=== PATIENT | female | born 1965 | race Caucasian/White ===

== ENCOUNTER → 2020-08-14 10:40 | Outpatient (BNVA) | payer OTHER, SELFPAY | PROVIDERS: PCP Physician Assistant; Visit Provider Surgery Vascular Surgery | DX: I83.11 Varicose veins of right lower extremity with inflammation (principal) | CPT/HCPCS: 37765 ==

== ENCOUNTER → 2020-08-31 08:55 | Outpatient (BNVA) | payer OTHER, SELFPAY | PROVIDERS: PCP Physician Assistant; Visit Provider Surgery Vascular Surgery | DX: Z76.89 Persons encountering health services in other specified circumstances (principal) ==

== ENCOUNTER 2020-12-04 14:33 | Outpatient (REF) | payer BC, SELFPAY ==
--- NOTE | ~2020-12-04 | MM_ITS ---
EXAMINATION: MM SCREENING DIGITAL BREAST TOMOSYNTHESIS, BILATERAL CLINICAL INFORMATION: Screening. Asymptomatic. The lifetime risk of breast cancer based on the Tyrer-Cuzick Model is 9%. COMPARISON: Mammography: 11/29/2019, outside exam 01/02/2015 06/05/2012 ([facility]). TECHNIQUE: Digital breast tomosynthesis is performed in both the craniocaudal and mediolateral oblique views along with computer-aided detection (CAD). Synthesized 2D images are generated from the tomosynthesis. FINDINGS: There are scattered areas of fibroglandular density (ACR BI-RADS breast composition Category b). Breast tissue composition borders on heterogeneously dense. There is no developing density or interval mass or architectural abnormality. There are vascular calcifications again noted. The axilla and skin contours are unremarkable. Biopsy clip marker again seen retroareolar right breast. MM/MM tomosynthesis screening BI IMPRESSION: No significant changes from prior study. ASSESSMENT: BI-RADS 1: Negative RECOMMENDATION: Routine annual mammography screening. This patient's information was entered into a reminder system with a target due date for their next mammogram.
== END 2020-12-04 14:34 | disposition home or self-care (01) ==
LOC: HO.MAMMO 14:33
PROVIDERS: Visit Provider Physician Assistant
DX: Z12.31 Encounter for screening mammogram for malignant neoplasm of breast (principal)
CPT/HCPCS: 77063; 77067

== ENCOUNTER 2021-03-17 14:58 | Outpatient (REF) | payer BC, SELFPAY ==
--- NOTE | ~2021-03-17 | XR_ITS ---
EXAMINATION: XR FOOT, RIGHT CLINICAL INFORMATION: Pain COMPARISON: None TECHNIQUE: AP, lateral, and oblique views of the right foot. FINDINGS: No fracture or dislocation is seen. There is mild hallux valgus deformity and degenerative change with joint space narrowing and small osteophytes at the first MTP joint. There is overlying soft tissue swelling. There may be a small cyst or erosion the proximal phalanx of the great toe. There are degenerative changes of the midfoot at the navicular cuneiform and cuneiform metatarsal joints with osteophytes. Soft tissues are unremarkable. XR/XR foot RT 2V IMPRESSION: Hallux valgus deformity and mild arthritis soft tissue swelling at the first MTP joint. Degenerative changes in the midfoot at the navicular cuneiform and MTT joints.
== END 2021-03-17 14:59 | disposition home or self-care (01) ==
LOC: HO.XRAY 14:58
PROVIDERS: PCP Physician Assistant; Visit Provider Physician Assistant
DX: G89.29 Other chronic pain (principal); M79.671 Pain in right foot
CPT/HCPCS: 73620

== ENCOUNTER 2021-03-19 10:20 | Outpatient (REF) | payer BC, SELFPAY ==
--- NOTE | ~2021-03-19 | FL_ITS ---
EXAMINATION: FL BARIUM SWALLOW CLINICAL INFORMATION: Dysphagia. COMPARISON: None TECHNIQUE: Barium swallow examination is performed using fluoroscopic evaluation in addition to multiple fluoroscopic spot views. The patient is imaged both upright and prone and using both thick and thin sulfate along with effervescent granules. Fluoroscopy time: 2.1 minutes DAP: 11.103 Gycm2 Images: 54 FINDINGS: Following oral administration of thin, thick barium and barium-coated turkey, there is normal propagation of bolus to oral cavity through the pharynx and esophagus into stomach without any evidence of obstruction, narrowing or stricture. On oral administration of barium tablet, there is transitional hold-up seen in the cervical esophageal region and at the GE junction. However, this cleared with drinking lots of water. On placing patient prone and oral administration of thin barium, there is good distention of esophagus with no intraluminal filling defects seen. Moderate indentation of the anterior thoracic esophageal wall seen corresponding to prominent aortic knob and mildly enlarged left atrium. There is a small sliding hiatal hernia with no gastroesophageal reflux seen. FL/FL barium swallow IMPRESSION: Small sliding hiatal hernia without gastroesophageal reflux. There is no esophageal obstruction, narrowing or stricture. Mild indentation of anterior sidewall from mild ectatic thoracic aorta and prominent left atrium.
== END 2021-03-19 10:21 | disposition home or self-care (01) ==
LOC: HO.XRAY 10:20
PROVIDERS: PCP Physician Assistant; Visit Provider Physician Assistant
DX: R13.10 Dysphagia, unspecified (principal)
CPT/HCPCS: 74220

== ENCOUNTER 2021-12-15 10:05 | Outpatient (REF) | payer BC, SELFPAY ==
[2021-12-15 10:41] LABS: Hematocrit 40.8 % (37.0-47.0); Hemoglobin 13.3 g/dl (12.0-16.0); Mean Corpuscular HGB Conc 32.6 g/dl (31.0-35.0); Mean Corpuscular Hemoglobin 29.3 pg (27.0-33.0); Mean Corpuscular Volume 89.9 fL (80.0-98.0); Mean Platelet Volume 10.4 fL (9.4-12.3); Platelet Count 263 X10*3/uL (160-400); Red Blood Count 4.54 X10*6/uL (4.20-5.50); Red Cell Distribution Width 12.8 % (11.0-16.0); White Blood Count 3.9 X10*3/uL (4.8-10.8)
[2021-12-15 11:14] LABS: Alanine Aminotransferase 24 U/L (0-31); Albumin Level 4.4 g/dL (3.5-5.0); Alkaline Phosphatase 47 U/L (39-117); Anion Gap 10 (12-20); Aspartate Amino Transferase 24 U/L (5-31); Bilirubin Total 0.7 mg/dL (0.0-1.0); Blood Urea Nitrogen 7 mg/dL (9-16); Calcium 9.7 mg/dL (8.4-10.2); Carbon Dioxide 29 mmol/L (22-29); Chloride 106 mmol/L (96-108); Cholesterol 255 mg/dL; Estimated Glomerular Filt Rate > 60; Glucose Fasting 89 mg/dL (60-99); HDL Cholesterol 62 mg/dL; LDL Cholesterol Calculated 177 mg/dl; Potassium 4.9 mmol/L (3.3-5.1); Sodium 140 mmol/L (135-145); Total Protein 6.9 g/dL (6.5-8.0); Triglycerides 80 mg/dL
[2021-12-15 11:24] LABS: Estimated Average Glucose 108 mg/dL; Hemoglobin A1c % 5.4 %
[2021-12-15 11:35] LABS: TSH reflex Free T4 1.31 uIU/mL (0.32-4.0)
== END 2021-12-15 10:06 | disposition home or self-care (01) ==
LOC: HO.LAB 10:05
PROVIDERS: PCP Physician Assistant; Visit Provider Physician Assistant
DX: Z13.220 Encounter for screening for lipoid disorders (principal); Z13.29 Encounter for screening for other suspected endocrine disorder; I10 Essential (primary) hypertension
CPT/HCPCS: 36415; 80053; 80061; 83036; 84443; 85027

== ENCOUNTER 2022-11-16 15:12 | Outpatient (REF) | payer BC, SELFPAY ==
--- NOTE | ~2022-11-16 | MM_ITS ---
EXAMINATION: MM SCREENING DIGITAL BREAST TOMOSYNTHESIS, BILATERAL CLINICAL INFORMATION: Screening. Asymptomatic. The lifetime risk of breast cancer based on the Tyrer-Cuzick Model is 5.9%. COMPARISON: Mammography: December 04, 2020 and studies dating back to June 05, 2012 TECHNIQUE: Digital breast tomosynthesis is performed in both the craniocaudal and mediolateral oblique views along with computer-aided detection (CAD). Synthesized 2D images are generated from the tomosynthesis. FINDINGS: There are scattered areas of fibroglandular density (ACR BI-RADS breast composition Category b). There are no significant masses, abnormal calcifications, or other abnormalities. MM/MM tomosynthesis screening BI IMPRESSION: No significant changes from prior exam. ASSESSMENT: BI-RADS 1: Negative RECOMMENDATION: Routine annual mammography screening. This patient's information was entered into a reminder system with a target due date for their next mammogram.
== END 2022-11-16 15:13 | disposition home or self-care (01) ==
LOC: HO.MAMMO 15:12
PROVIDERS: PCP Physician Assistant; Visit Provider Physician Assistant
DX: Z12.31 Encounter for screening mammogram for malignant neoplasm of breast (principal)
CPT/HCPCS: 77063; 77067

== ENCOUNTER 2023-08-05 17:28 | Emergency (ER) | payer BC, SELFPAY ==
--- NOTE | 2023-08-05 | ECG_ITS ---
Test Reason : CHEST PAIN Blood Pressure : / mmHG Vent. Rate : 074 BPM Atrial Rate : 074 BPM P-R Int : 142 ms QRS Dur : 096 ms QT Int : 408 ms P-R-T Axes : 031 054 013 degrees QTc Int : 452 ms Normal sinus rhythm RSR' or QR pattern in V1 suggests right ventricular conduction delay Nonspecific ST abnormality Abnormal ECG When compared with ECG of 15-MAY-2014 13:32, No significant change was found Referred By: Generic ED Physician Electronically Signed By:LOU KING MD
--- NOTE | ~2023-08-05 | XR_ITS ---
EXAMINATION: XR CHEST CLINICAL INFORMATION: Chest pain COMPARISON: None available. TECHNIQUE: Frontal view of the chest was obtained. FINDINGS: No significant abnormality is noted involving the heart, lungs, mediastinum, bony thorax or soft tissues. XR/XR chest 1V IMPRESSION: Unremarkable chest examination.
[2023-08-05 17:42] VITALS: BP 154/87; PULSE 66; RESP 18; TEMP 36.6; O2SAT 100; BMI 29.1
[2023-08-05 17:56] VITALS: BP 158/81; PULSE 65; RESP 16; TEMP 36.8; O2SAT 100
[2023-08-05 18:06] LABS: MANUAL DIFF FLAG NO
[2023-08-05 18:07] LABS: Basophils Percent Auto 0.6 % (0-2); Eosinophils Absolute Auto 0.4 X10*3/uL (0.0-0.4); Eosinophils Percent Auto 5.1 % (0-4); Hemoglobin 11.9 g/dl (12.0-16.0); Imm Gran Abs Auto 0.01 X10*3/uL (0.00-0.03); Imm Gran Pct Auto 0.1 % (0.0-0.4); Lymphocytes Absolute Auto 2.8 X10*3/uL (1.2-4.9); Mean Corpuscular Hemoglobin 29.2 pg (27.0-33.0); Mean Corpuscular Volume 85.8 fL (80.0-98.0); Mean Platelet Volume 9.4 fL (9.4-12.3); Monocytes Absolute Auto 0.7 X10*3/uL (0.1-1.2); Monocytes Percent Auto 10.1 % (2-11); Neutrophils Absolute Auto 3.1 x10*3/uL (2.0-8.3); Neutrophils Percent Auto 44.1 % (45-73); Platelet Count 264 X10*3/uL (160-400); Red Blood Count 4.08 X10*6/uL (4.20-5.50); Red Cell Distribution Width 13.2 % (11.0-16.0); White Blood Count 7.1 X10*3/uL (4.8-10.8)
--- NOTE | 2023-08-05 18:10 | PC.NURSE ---
a&ox3, vss and up to date. nsr on the school bus monitor. pt comes in today d/t new onset left sided chest pain that radiates to upper neck/ pt denies sob/n/v/d/headache. pt states she was playing pin[employer]linkit pong when sx suddenly came on. lung sounds clear throughout. heart sounds wnl. tech bedside/obtained labs. pt seems to be in no apparent distress at this time. respirations even and unlabored. call haro placed within reach.
--- NOTE | 2023-08-05 18:16 | MHC.EDTECH ---
Patient changed over
[2023-08-05 18:27] LABS: Alanine Aminotransferase 22 U/L (0-31); Alkaline Phosphatase 50 U/L (39-117); Anion Gap 15 (12-20); Aspartate Amino Transferase 25 U/L (5-31); Bilirubin Direct 0.1 mg/dL (0.0-0.5); Bilirubin Total 0.4 mg/dL (0.0-1.0); Blood Urea Nitrogen 11 mg/dL (9-16); Carbon Dioxide 27 mmol/L (22-29); Chloride 96 mmol/L (96-108); Creatinine Clr Calc Pharmacy 86.3; Estimated Glomerular Filt Rate > 60; Glucose Random 97 mg/dL (60-115); Lipase 21 U/L (8-78); Potassium 3.8 mmol/L (3.3-5.1); Sodium 134 mmol/L (135-145); Total Protein 6.6 g/dL (6.5-8.0)
[2023-08-05 18:34] LABS: Troponin-I High Sensitivity < 2.7 ng/L (<3.5-17.0)
--- NOTE | 2023-08-05 18:42 | ED_ITS ---
HPI - Chest Pain General Chief Complaint: Chest Pain Stated Complaint: chest pain Time Seen by Provider: 08/05/23 18:03 Source: patient, RN notes reviewed and old records reviewed Mode of arrival: ambulatory Limitations: no limitations History of Present Illness HPI narrative: Patient is a 58-year-old female with a PMH of SVT, HLD, sliding hiatal hernia, insomnia, and varicose veins of right lower extremity presenting with sudden onset of intermittent left sided chest pain and throat pain that began 2 hours ago. The pain has since subsided. Endorses chills that started today. Denies fever, trauma, headache, confusion, dizziness, shortness of breath, palpitations, cough, abdominal pain, nausea, vomiting, bowel movement changes, and urinary abnormalities. Related Data Previous Rx's Medication Instructions Recorded azithromycin 250 mg tablet See Rx Instructions PO .COMPLEX #6 08/19/21 tabs valacyclovir 500 mg tablet 500 mg PO BID #20 caps 02/07/23 zolpidem 10 mg tablet 10 mg PO BEDTIME 30 days #30 tabs 05/23/23 fluticasone 250 mcg-salmeterol 50 1 ea PO BID #60 caps 06/25/23 mcg/dose blistr powdr for inhalation (Wixela Inhub) Allergies Allergy/AdvReac Type Severity Reaction Status Date / Time adhesive [BANDAGE,ADHESIVE] Allergy Intermediate RASH Verified 06/15/21 15:36 morphine [MORPHINE] Allergy Intermediate RASH Verified 06/15/21 15:36 pneumococcal vaccine AdvReac Intermediate Myalgias Verified 06/15/21 15:36 [From Pneumovax-23] Review of Systems 2 Review of Systems: Constitutional : + chills, No Weight loss, No Fever, No Fatigue, No Malaise ENT/Mouth : No sore throat, No Rhinorrhea Eyes: No Eye Pain, No Swelling, No Redness Cardiovascular : + Chest Pain, No SOB, No Dyspnea on Exertion, No Orthopnea, No Edema, No Palpitations Respiratory : No Cough, No Sputum, No Wheezing Gastrointestinal : No Nausea, No Vomiting, No Diarrhea, No Constipation, No abdominal pain, No Hematochezia, No Melena Genitourinary : No Dysuria, No Urinary Frequency, No Hematuria, Musculoskeletal : No joint pain, No Myalgias, No Joint Swelling Skin : No Skin Lesions, No rash Neuro : No Weakness, No Numbness, No Dizziness, No Headache All other systems reviewed and are negative Yes all other systems are reviewed and are negative [facility] Past Medical History Attestation statement: The following information was validated with the patient. Source: old records reviewed and nursing notes reviewed Surgical History History of cholecystectomy History of varicose veins Family History Family History Father CVD (cardiovascular disease) S/P triple vessel bypass Colon cancer Bladder cancer Mother No problems noted. Brother No problems noted. Brother No problems noted. 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 Oriented X3.? No acute distress.? Head: Normocephalic, atraumatic, no step-offs or deformities Eyes: Pupils equal, round and reactive to light.? Neck: Normal inspection.? Neck supple.? CVS: Normal heart rate and rhythm.? Pulses normal.? Respiratory: No respiratory distress.? Breath sounds normal.? Abdomen: Soft and nontender.? Skin: Skin warm and dry.? Normal skin color.? Normal skin turgor.? Extremities: No lower extremity edema.? No calf ttp. 5/5 strength to bilateral upper and lower extremities Back: No midline tenderness, no C-spine tenderness, full range of motion, no CVA tenderness bilaterally Neuro: Oriented X 3.? No motor deficit.? No sensory deficit. Course Reevaluation(s) Reevaluation #1: CBC appears to be within normal limits slight normmocytic anemia noted no reports of bleeding. Chemistry with slightly low sodium patient tolerating p.o. will encourage p.o. hydration. Troponin negative x3 EKG nonischemic. History and physical exam not concerning for pulmonary embolism, patient not tachycardic, tachypneic or hypoxic. UA clean. Xray pending Time: 21:11 Medical Decision Making Medical Decision Making [facility] Narrative: 58-year-old female presenting with sudden onset of intermittent left sided chest pain and throat pain that began 2 hours ago PE benign Likely non cardiac related cp vs anxiety vs msk pain. Unlikely GA, pneumothorax, PE, aortic dissection. Plan - EKG, labs Differential Diagnosis Differential Diagnoses: The differential diagnosis associated with the presentation includes Likely non cardiac related cp vs anxiety vs msk pain. Unlikely GA, pneumothorax, PE, aortic dissection. Admission/Observation Consideration of admission/observation: Escalation of care including admission/observation considered Lab Data [facility] Lab Attestation statement: I reviewed the patient's lab results. 08/05/23 18:01 08/05/23 18:01 Labs: Lab Results 08/05/23 08/05/23 Range/Units 18:01 19:17 WBC 7.1 (4.8-10.8) X10*3/uL RBC 4.08 L (4.20-5.50) X10*6/uL Hgb 11.9 L (12.0-16.0) g/dl Hct 35.0 L (37.0-47.0) % MCV 85.8 (80.0-98.0) fL MCH 29.2 (27.0-33.0) pg MCHC 34.0 (31.0-35.0) g/dl RDW 13.2 (11.0-16.0) % Plt Count 264 (160-400) X10*3/uL MPV 9.4 (9.4-12.3) fL Immature Gran % (Auto) 0.1 (0.0-0.4) % Neut % (Auto) 44.1 L (45-73) % Lymph % (Auto) 40.0 (20-40) % Blount % (Auto) 10.1 (2-11) % Eos % (Auto) 5.1 H (0-4) % Baso % (Auto) 0.6 (0-2) % Lymph # (Auto) 2.8 (1.2-4.9) X10*3/uL Blount # (Auto) 0.7 (0.1-1.2) X10*3/uL Eos # (Auto) 0.4 (0.0-0.4) X10*3/uL Baso # (Auto) 0.0 (0.0-0.2) X10*3/uL Abs Immat Gran (auto) 0.01 (0.00-0.03) X10*3/uL Absolute Neuts (auto) 3.1 (2.0-8.3) x10*3/uL Absolute Nucleated RBC 0.000 (0.0-0.012) X10*3/uL Nucleated RBC % (auto) 0.0 (0.0-0.2) /100WBC Sodium 134 L (135-145) mmol/L Potassium 3.8 D (3.3-5.1) mmol/L Chloride 96 (96-108) mmol/L Carbon Dioxide 27 (22-29) mmol/L Anion Gap 15 (12-20) BUN 11 (9-16) mg/dL Creatinine 0.73 (0.5-1.4) mg/dL Estim Creat Clear Calc 86.3 Estimated GFR > 60 Random Glucose 97 (60-115) mg/dL Calcium 9.0 D (8.4-10.2) mg/dL Total Bilirubin 0.4 (0.0-1.0) mg/dL Direct Bilirubin 0.1 (0.0-0.5) mg/dL AST 25 (5-31) U/L ALT 22 (0-31) U/L Alkaline Phosphatase 50 (39-117) U/L Troponin I High Sens < 2.7 < 2.7 (<3.5-17.0) ng/L Total Protein 6.6 (6.5-8.0) g/dL Albumin 4.0 (3.5-5.0) g/dL Lipase 21 (8-78) U/L Urine Color Dark Yellow Urine Appearance Clear Urine pH 8.5 (5.0-9.0) Ur Specific Grady <= 1.005 (1.005-1.025) Urine Protein Negative (Neg-Trace) mg/dL Urine Glucose (UA) Negative (Negative) mg/dL Urine Ketones Negative (Negative) mg/dL Urine Blood Negative (Negative) Urine Nitrite Negative (Negative) Ur Leukocyte Esterase Negative (Negative) Urine RBC 0-2 (0-2) /HPF Urine WBC 0-5 (0-5) /HPF Ur Squamous Epith Cells 0-2 (0-2) /HPF Urine Bacteria None Seen (None Seen) Hyaline Casts 0-2 (0-2) /LPF Independent Interpretation I performed an independent interpretation of an: EKG (Vent rate 74, LA normal, Qt/QTC normal no LAISHA or inversions concerning for acute ischemia ) and Plain X- Ray Radiology Impression Discussion of test interpretation with radiology: I have reviewed the radiologist's reading. External Record Review External record reviewed: Inpatient record, Office record, Outpatient record, Prior outpatient labs, Prior outpatient radiology, Primary care record and Outside ED record Critical Care Time Critical Care Time Critical Care Time: No Discharge Plan Discharge Clinical Impression: Chest pain Patient Disposition: Home, Self-Care Instructions: Chest Pain (ED) Additional Instructions: Take your medications as prescribed. If you were prescribed antibiotics today, it is important that you take your medication to their entirety, do not skip any doses, do not finish them early. Follow-up with your primary care provider this week. Return to the emergency department with new or worsening symptoms. Such as fevers, chills, chest pain, shortness of breath, nausea, vomiting, dizziness, headache, vision changes, lethargy In case of emergency call 911 Prescriptions: No Action azithromycin 250 mg tablet See Rx Instructions PO .COMPLEX Qty: 6 0RF Rx Instructions: take 500 mg today (day 1), then 250 mg for 4 days (days 2-5) PO valacyclovir 500 mg tablet 500 mg PO BID Qty: 20 1RF zolpidem 10 mg tablet 10 mg PO BEDTIME 30 Days Qty: 30 5RF fluticasone propion-salmeterol [Wixela Inhub] 250-50 mcg/dose blister with device 1 ea PO BID Qty: 60 3RF Referrals: Benja Jones PA-C [Primary Care Provider] - 2 days [facility] [Provider Group] - 3 days
[2023-08-05 19:43] LABS: Troponin-I High Sensitivity < 2.7 ng/L (<3.5-17.0)
[2023-08-05 20:00] VITALS: BP 118/69; PULSE 63; RESP 16; O2SAT 95
--- NOTE | 2023-08-05 20:26 | PC.NURSE ---
vss and up to date at this time. nsr on the night monitor. pt verbalizes that pain has completely subsided at this time. respirations remain even and unlabored. call haro placed within reach.
[2023-08-05 20:51] LABS: Appearance Urine Clear; Color Urine Dark Yellow; Glucose Urine UA Negative (Negative); Leukocyte Esterase Urine Negative (Negative); Nitrite Urine Negative (Negative); PH 8.5 (5.0-9.0); Specific Gravity - Urine <= 1.005 (1.005-1.025); Urine Blood Negative (Negative); Urine Ketones Negative (Negative); Urine Protein Negative (Neg-Trace)
[2023-08-05 21:01] LABS: Bacteria Urine None Seen (None Seen); Hyaline Casts Urine 0-2 /LPF (0-2); RBC Urine 0-2 /HPF (0-2); Squamous Epithelial Cell Urine 0-2 /HPF (0-2); WBC Urine 0-5 /HPF (0-5)
[2023-08-05 21:10] LABS: Troponin-I High Sensitivity < 2.7 ng/L (<3.5-17.0)
== END 2023-08-05 21:28 | disposition home or self-care (01) ==
PROVIDERS: Physician Assistant; Emergency Provider Internal Medicine; PCP Physician Assistant
DX: R07.9 Chest pain, unspecified (principal); J02.9 Acute pharyngitis, unspecified; E78.5 Hyperlipidemia, unspecified
CPT/HCPCS: 36415; 71045; 80048; 80076; 81001; 83690; 84484; 85025; 93005; 99284; 99285

== ENCOUNTER 2023-10-11 13:23 | Outpatient (AMB) | payer BC, SELFPAY ==
[2023-10-11 13:32] VITALS: BP 130/78; PULSE 67; O2SAT 100; BMI 27.6
--- NOTE | 2023-10-11 13:32 | MHC.PC.OV ---
Vital Signs 10/11/23 13:32 Height 5 ft 5 in Weight 166 lb 2 oz BMI 27.6 BP 130/78 Blood Pressure Location Lt brachial Position Sitting Pulse 67 Pulse Source Pulse Oximeter Pulse Oximetry (%) 100 Oxygen Delivery Method Room Air Intake Visit Reasons: Physical Exam Intake Note: Patient is here today for a physical. Plug Paster Required: No Accompanied by: Self / Same As Patient Allergies adhesive [BANDAGE,ADHESIVE] Allergy (Intermediate, Verified 10/11/23 13:57) RASH morphine [MORPHINE] Allergy (Intermediate, Verified 10/11/23 13:57) RASH pneumococcal vaccine [From Pneumovax-23] Adverse Reaction (Intermediate, Verified 10/11/23 13:57) Myalgias Medication List - Last Reconciled 10/11/23 by Benja Jones PA-C fluticasone propion-salmeterol 250-50 mcg/dose (Wixela Inhub) 1 ea PO BID valacyclovir 500 mg PO BID zolpidem 10 mg PO BEDTIME 30 days Tobacco use date assessed: 06/15/21 HPI Physical Exam HPI Details Patient is a 58-year-old female here today for annual physical. Patient has a past medical history significant for polyarthralgia, asthma, dysphagia. She did have follow-up of visit with Gastroenterology. She did have barium swallow study did did show a sliding hiatal hernia .. Asthma: Has been fairly well controlled with p.r.n. use of her maintenance inhaler. Has not had to use any rescue albuterol inhaler. Interestingly asthma has been well controlled since using mushroom tea .. Vaccines: Up-to-date with tetanus, up-to-date with pneumonia vaccine, tetanus vaccine Mammogram: Done in November of 2022, BI-RADS 1 School Health Assistant: She is followed by [facility] control officer manager. Unclear when her last Pap Colonoscopy: Done in [address] Cueva normal repeat 10 years. [facility] Surgical History History of varicose veins History of cholecystectomy Family History Father CVD (cardiovascular disease) S/P triple vessel bypass Colon cancer Bladder cancer Mother No problems noted. Brother No problems noted. Brother No problems noted. 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 1. Little interest or pleasure in doing things: not at all 2. Feeling down, depressed, or hopeless: not at all 3. Trouble falling or staying asleep, or sleeping too much: not at all 4. Feeling tired or having little energy: not at all 5. Poor appetite or overeating: not at all 6. Feeling bad about yourself - or that you are a failure or have let yourself or your family down: not at all 7. Trouble concentrating on things, such as reading the newspaper or watching television: not at all 8. Moving or speaking so slowly that other people could have noticed. Or the opposite - being so fidgety or restless that you have been moving around a lot more than usual: not at all 9. Thoughts that you would be better off or of hurting yourself in some way: not at all Total score: 0 Depression Screening Interpretation: Negative Depression Screening Done: Yes 61463 - PHQ-9 Billing: Yes Source: Developed by Drs. Franklin Velasco, Erna Prabhakar, Sandip Cooper and colleagues, with an educational delmy from [employer]. Thrive Questionnaire Date Thrive assessed: 10/11/23 I am a: Patient What is your living situation today?: I have a steady place to live Within the past 12 months, did the food you bought not last and you didn't have the money to get more?: Never true Within the past 12 months, did you worry whether your food would run out before you got money to buy more?: Never true Do you have trouble paying for medicines?: No Do you have trouble getting transportation to medical appointments?: No Do you have trouble paying your heating and electricity bill?: No Do you have trouble taking care of your child, family member or friend?: No Do you have trouble with day-to-day activities such as bathing, preparing meals, shopping, managing finances, etc.?: No Are you currently unemployed and looking for a job?: No Are you interested in more education?: No Please select the resources that you would like help with: None Currently or been in a relationship where the following occur: no concerns reported AUDIT C Alcohol Use Questionnaire (AUDIT-C) 1. How often do you have a drink containing alcohol?: Never 3. How often do you have six or more drinks on one occasion?: Never Total Score: 0 MAURY-7 AMB Questionnaire MAURY-7 Date MAURY - 7 assessed: 10/11/23 Feeling nervous, anxious, or on edge: 2 = More than half the days Not being able to stop or control worryin = More than half the days Worrying too much about different things: 2 = More than half the days Trouble relaxin = More than half the days Being so restless that it is hard to sit still: 2 = More than half the days Becoming easily annoyed or irritable: 1 = Several days Feeling afraid as if something awful might happen: 2 = More than half the days Total MAURY-7 score (0-4 normal; 5-9 mild; 10-14 moderate; 15-21 severe): 13 Source: Developed by Drs. Franklin Velasco, Erna Prabhakar, Sandip Cooper and colleagues, with an educational delmy from [employer]. MAURY-7 Assessment Billing MAURY-7 Assessment Tool: MAURY-7 Assessment 29236 ACT Questionnaire In the past 4 weeks, how much of the time did your asthma keep you from getting as much done at work, school or at home?: A little of the time During the past 4 weeks, how often have you had shortness of breath?: Not at all During the past 4 weeks, how often did your asthma symptoms wake you up at night or earlier than usual in the morning?: Not at all During the past 4 weeks, how often have you had to use your rescue inhaler or nebulizer medication?: Not at all How would you rate your asthma control during the past 4 weeks?: Completely controlled ACT Interpretation: Negative Score: 24 Review of Systems Const Denies body aches, Denies chills, Denies excessive sweating, Denies fatigue, Denies fever(s) and Denies headache(s) Eyes Denies blurry vision ENT Denies dysphagia, Denies vertigo, Denies dizziness, Denies headache(s), Denies hearing loss and Denies tinnitus Card Denies chest pain, Denies chest pain with activity, Denies syncope, Denies irregular heart rhythm and Denies dyspnea Resp Denies chest congestion, Denies cough, Denies hemoptysis, Denies dyspnea and Denies wheezing GI Denies abdominal pain, Denies melena, Denies hematochezia, Denies coffee ground emesis, Denies dysphagia, Denies diarrhea, Denies nausea and Denies vomiting Denies urinary frequency, Denies dysuria, Denies urinary hesitancy and Denies urinary urgency Musc Denies arthralgias, Denies limited range of motion, Denies muscle cramps and Denies muscle weakness Skin/Breast Denies rash and Denies skin ulcer Neuro Denies Abnormal speech present, Denies confusion, Denies vertigo, Denies dizziness, Denies syncope, Denies headache(s), Denies memory loss and Denies seizure-like activity Psych Denies anxiety, Denies confusion, Denies depression, Denies memory loss, Denies panic attacks and Denies paranoia Endo Denies excessive sweating, Denies fatigue, Denies flushing, Denies polydipsia and Denies polyuria Aller/Immun Denies wheezing Physical exam (Primary Care) Vital Signs: Last Vital Signs Pulse 67 10/11/23 13:32 BP 130/78 10/11/23 13:32 Pulse Ox 100 10/11/23 13:32 Oxygen Delivery Method Room Air 10/11/23 13:32 BMI result Body Mass Index 27.6 Tobacco/Smoking Status: Tobacco use Status Tobacco use date assessed 06/15/21 10/11/23 13:36 Patient Tobacco Use Status Never used Tobacco 10/11/23 13:36 PHQ-9: PHQ-9 Score PHQ-9: Total score 0 10/11/23 13:38 Depression Screening Interpretation: Negative Thrive Assessment: Date of Thrive Assessment Date Thrive assessed 10/11/23 10/11/23 13:38 Currently or been in a relationship where the following occur: no concerns reported Const General: cooperative, comfortable, no acute distress, alert and awake; No confusion Orientation/consciousness: oriented to person, oriented to place, patient oriented x3 and No confusion HENMT Head: Yes normocephalic Head images: 1. RAISED SCABBED LESION OVER RIGHT UPPER CHEEK. Ears: external ears normal and TM's normal bilaterally Face and sinus: No sinus tenderness Mouth: Normal oral and palatal mucosa present and tongue normal Teeth and gingiva: dentition normal and gingiva normal Throat: Yes posterior oropharynx normal, Yes tonsils normal and Yes uvula midline Eyes Conjunctivae: conjunctivae normal Sclerae: sclerae normal Pupils: Equal, round and reactive pupils present EOM: EOMs intact bilaterally Direct Ophthalmoscopy: No no photophobia Neck Neck: Yes no lymphadenopathy, No tender and Yes no JVD Thyroid: Thyroid normal Carotids: no bruits Chest Chest palpation & inspection: no tenderness Resp Effort & Inspection: normal respiratory effort, no audible wheezes, not labored and no stridor Auscultation: no crackles, no rales, no rhonchi and no wheezes Cardio Jugular venous distension: no JVD Rate: regular rate, not bradycardic and not tachycardic Rhythm: regular rhythm Bruits: no carotid bruits Peripheral pulses: Peripheral pulses 2+ throughout GI Inspection: Yes normal to inspection, No abdominal wall ecchymosis and No visible herniation Palpation (GI): Soft to palpation, nontender, no guarding, not rigid and No hepatosplenomegaly present Auscultation: normoactive bowel sounds General: Yes no CVA tenderness Back/Spine/Pelvis Back: no CVA tenderness and No back tenderness Cervical Spine: cervical ROM normal Thoracic/Lumbar Spine: thoracic and lumbar spine normal to inspection, straight leg raise negative bilaterally, No thoraco-lumbar ROM limited and No lumbar spinal tenderness Skin Lesions: no lesions Rashes: no rashes Wounds: no wounds Neuro General: oriented to person, oriented to place, patient oriented x3, CN's II-XI intact bilaterally and No confusion Cranial nerves: Yes Equal, round and reactive pupils present and Yes Normal accommodation reflex present Cognition (Neuro): normal cognition Speech: No Abnormal speech present Gait exam (Neuro): Normal gait present Motor exam (neuro): 5/5 motor strength present throughout Extrem Right upper extremity: full ROM; no cyanosis Left upper extremity: full ROM; no cyanosis Right lower extremity: no edema Left lower extremity: no edema Psych Appearance: grossly normal Mental Status: mental status grossly normal Affect: normal affect Attitude: cooperative Thought process: Normal thought process present Assessment and Plan Assessment & Plan (1) Annual physical exam: Code(s): Z00.00 - Encounter for general adult medical examination without abnormal findings (2) HLD (hyperlipidemia): Code(s): E78.5 - Hyperlipidemia, unspecified Qualifiers: Hyperlipidemia type: mixed hyperlipidemia Qualified Code(s): E78.2 - Mixed hyperlipidemia Plan: Patient does have history of borderline high cholesterol. Will recheck fasting lipids. She has been working on dietary modifications to reduce her cholesterol. (3) Screening for diabetes mellitus (DM): Code(s): Z13.1 - Encounter for screening for diabetes mellitus (4) Asthma: Code(s): J45.909 - Unspecified asthma, uncomplicated Qualifiers: Asthma severity: mild Asthma persistence: persistent Asthma complication type: unspecified Qualified Code(s): J45.30 - Mild persistent asthma, uncomplicated Plan: Asthma is fairly well controlled with only p.r.n. use of her maintenance inhaler. Has not had to use her rescue albuterol heel at all. She denies any nighttime awakenings with asthma symptoms. (5) Skin lesion of cheek: Code(s): L98.9 - Disorder of the skin and subcutaneous tissue, unspecified Plan: Has a nonhealing skin lesion over the right side of her facial cheek that has been evident over the last several months. She reports it does bleed and scab over quite often. She is concerned about skin cancer which is prevalent in her family. Will refer to dermatology for biopsy. (6) Insomnia: Code(s): G47.00 - Insomnia, unspecified Qualifiers: Insomnia type: primary Qualified Code(s): F51.01 - Primary insomnia Plan: Continues to use open him on a nightly basis with good effect on sleep. (7) Herpes simplex: Code(s): B00.9 - Herpesviral infection, unspecified Plan: Does have recurrent herpes simplex infections usually oral. 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 Does use Valtrex on an as-needed basis. Orders: Referrals Dermatology Referral L98.9 - Disorder of the skin and subcutaneous tissue, unspecified Medications: Refilled fluticasone propion-salmeterol 250-50 mcg/dose (Wixela Inhub) 1 ea PO BID 60 caps 3RF J45.30 - Mild persistent asthma, uncomplicated valacyclovir 500 mg PO BID 20 caps 1RF B00.9 - Herpesviral infection, unspecified zolpidem 10 mg PO BEDTIME 30 days 30 tabs 5RF G47.00 - Insomnia, unspecified Coding Level of Care Code Est Pt Prev Care 40-64y(64987) Diagnoses Annual physical exam Z00.00 Mixed hyperlipidemia E78.2 Hyperlipidemia type: mixed hyperlipidemia Screening for diabetes mellitus (DM) Z13.1 Mild persistent asthma, unspecified whether complicated J45.30 Asthma severity: mild Asthma persistence: persistent Asthma complication type: unspecified Skin lesion of cheek L98.9 Primary insomnia F51.01 Insomnia type: primary Herpes simplex B00.9 Additional Codes MAURY-7 Assessment Billing - MAURY-7 Assessment Tool: MAURY-7 Assessment 40320 ([id number])
== END 2023-10-11 14:22 | disposition home or self-care (01) ==
PROVIDERS: PCP Physician Assistant; Visit Provider Physician Assistant
DX: Z00.00 Encounter for general adult medical examination without abnormal findings (principal); E78.2 Mixed hyperlipidemia; Z13.1 Encounter for screening for diabetes mellitus; J45.30 Mild persistent asthma, uncomplicated; L98.9 Disorder of the skin and subcutaneous tissue, unspecified; F51.01 Primary insomnia; B00.9 Herpesviral infection, unspecified
CPT/HCPCS: 99396

== ENCOUNTER 2024-02-14 15:02 | Outpatient (AMB) | payer BC, SELFPAY ==
--- NOTE | 2024-02-14 15:06 | MHC.PC.OV ---
Vital Signs 02/14/24 15:23 Height 5 ft 5 in Weight 163 lb 2 oz BMI 27.1 BP 106/76 Blood Pressure Location Lt brachial Position Sitting Pulse 65 Pulse Source Pulse Oximeter Pulse Oximetry (%) 97 Oxygen Delivery Method Room Air Intake Visit Reasons: Knee/swollen/pain Intake Note: The patient presents with complaints of pain and swelling in the left knee, exacerbated while walking and intensifying particularly at night. 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 Required: No Accompanied by: Self / Same As Patient Allergies adhesive [BANDAGE,ADHESIVE] Allergy (Intermediate, Verified 10/11/23 13:57) RASH morphine [MORPHINE] Allergy (Intermediate, Verified 10/11/23 13:57) RASH pneumococcal vaccine [From Pneumovax-23] Adverse Reaction (Intermediate, Verified 10/11/23 13:57) Myalgias Tobacco use date assessed: 02/14/24 Dental Screening Dental Screen Date: 02/14/24 Did you have a dental visit in the last 12 months?: Yes Did you have a dental problem in the last 6 months where you did not have access to dental care?: No Was dental information given to patient?: Patient has dentist HPI Knee/swollen/pain HPI Details Patient is a 58-year-old female here today for a problem visit. She reports chronic left knee pain over the last 6 months. She does report a distant history of a injury while hiking hyperextending her left knee and ever since having continued pain and intermittent swelling. She does feel there is some instability in the left knee at times. She uses mostly herbal anti-inflammatory remedies for mushrooms that help her generalized arthritic pain. [facility] Surgical History History of varicose veins History of cholecystectomy Family History Father CVD (cardiovascular disease) S/P triple vessel bypass Colon cancer Bladder cancer Mother No problems noted. Brother No problems noted. Brother No problems noted. Sister In good health Sister In good health Son In good health Daughter In good health Daughter In good health Social History Housing: House Alcohol intake: never Patient Tobacco Use Status: Never used Tobacco Second Hand Smoke Exposure: No service: No Current occupational status: employed Current occupation: [employer] Cognitive needs: No Hearing needs: No Vision needs: No Questionnaire PHQ-9 Over the last 2 weeks, how often have you been bothered by any of the following problems? 1. Little interest or pleasure in doing things: not at all 2. Feeling down, depressed, or hopeless: not at all 3. Trouble falling or staying asleep, or sleeping too much: not at all 4. Feeling tired or having little energy: not at all 5. Poor appetite or overeating: not at all 6. Feeling bad about yourself - or that you are a failure or have let yourself or your family down: not at all 7. Trouble concentrating on things, such as reading the newspaper or watching television: not at all 8. Moving or speaking so slowly that other people could have noticed. Or the opposite - being so fidgety or restless that you have been moving around a lot more than usual: not at all 9. Thoughts that you would be better off or of hurting yourself in some way: not at all Total score: 0 Depression Screening Interpretation: Negative Depression Screening Done: Yes 36668 - PHQ-9 Billing: Yes Source: Developed by Drs. Franklin Velasco, Erna Prabhakar, Sandip Cooper and colleagues, with an educational delmy from [employer]. Thrive Questionnaire Date Thrive assessed: 10/11/23 MAURY-7 AMB Questionnaire MAURY-7 Date MAURY - 7 assessed: 10/11/23 Source: Developed by Erna Lynn, Sandip Cooper and colleagues, with an educational delmy from [employer]. Review of Systems Const Denies headache(s) Eyes Denies loss of vision ENT Denies vertigo, Denies dizziness, Denies headache(s) and Denies sore throat Card Denies chest pain, Denies leg edema and Denies lightheadedness Resp Denies cough, Denies hemoptysis and Denies wheezing GI Denies abdominal pain, Denies melena, Denies constipation, Denies diarrhea and Denies vomiting Denies urinary frequency, Denies dysuria and Denies urinary urgency Musc Denies arthralgias, Denies joint swelling, Denies numbness and Denies tingling Neuro Denies Abnormal speech present, Denies behavioral changes, Denies vertigo, Denies dizziness, Denies headache(s), Denies loss of vision, Denies memory loss, Denies numbness and Denies tingling Psych Denies anxiety, Denies behavioral changes, Denies depression, Denies memory loss and Denies panic attacks Thang/Lymph Denies easy bleeding and Denies easy bruising Aller/Immun Denies wheezing Physical exam (Primary Care) Vital Signs: Last Vital Signs Pulse 65 02/14/24 15:23 BP 106/76 02/14/24 15:23 Pulse Ox 97 02/14/24 15:23 Oxygen Delivery Method Room Air 02/14/24 15:23 BMI result Body Mass Index 27.1 Tobacco/Smoking Status: Tobacco use Status Tobacco use date assessed 02/14/24 02/14/24 15:42 Patient Tobacco Use Status Never used Tobacco 02/14/24 15:06 PHQ-9: PHQ-9 Score PHQ-9: Total score 0 02/14/24 15:53 Depression Screening Interpretation: Negative Thrive Assessment: Date of Thrive Assessment Date Thrive assessed 10/11/23 02/14/24 15:06 Const General: healthy appearing, no acute distress, alert and awake Nutritional Appearance: well nourished Orientation/consciousness: oriented to person, oriented to place and oriented to time HENMT Ears: TM's normal bilaterally General nose exam: Normal nasal mucous membranes and turbinates present Eyes Conjunctivae: conjunctivae normal Sclerae: sclerae normal Pupils: Equal, round and reactive pupils present Neck Neck: Yes no lymphadenopathy and Yes no JVD Thyroid: Thyroid normal Carotids: no bruits Resp Effort & Inspection: normal respiratory effort and not tachypneic Auscultation: no crackles, no rales, no rhonchi and no wheezes Cardio Rate: regular rate Rhythm: regular rhythm Heart sounds: no murmurs and normal S1 and S2 GI Palpation (GI): Soft to palpation, nontender, no hepatomegaly and no splenomegaly Auscultation: normal bowel sounds Skin General skin exam: no rashes or lesions noted and dry skin Neuro General: oriented to person, oriented to place and oriented to time Cranial nerves: Yes Equal, round and reactive pupils present Speech: No Abnormal speech present Gait exam (Neuro): Normal gait present Motor exam (neuro): no tremor noted Extrem Other: LEFT KNEE: SOME NOTABLE EDEMA. NO LIGAMENTOUS LAXITY, HAS FULL RANGE OF MOTION Right upper extremity: full ROM Left upper extremity: full ROM Right lower extremity: full ROM; no edema Left lower extremity: full ROM; no edema Knee images: 1. SOME NOTABLE SWELLING OF THE LEFT KNEE IN THE ANTERIOR ASPECT COMPARED TO RIGHT KNEE. NO LIGAMENTOUS LAXITY NOTED ON PHYSICAL EXAM Psych Mental Status: mental status grossly normal Speech and movement: Normal speech and movement present Affect: normal affect Attitude: cooperative Thought process: Normal thought process present Assessment and Plan Assessment & Plan (1) Left knee pain: Code(s): M25.562 - Pain in left knee Qualifiers: Chronicity: chronic Qualified Code(s): M25.562 - Pain in left knee; G89.29 - Other chronic pain Plan: Patient reports a six-month history left knee pain intermittent swelling. She does report a distant history of fall with knee extension injury while hiking. She reports knee instability and intermittent swelling concerning for a meniscus tear. Will try for MRI of need to see soft tissue. Likely benefit from physical therapy. (2) Tear of left meniscus as current injury: Code(s): S83.207A - Unspecified tear of unspecified meniscus, current injury, left knee, initial encounter Qualifiers: Encounter type: initial encounter Qualified Code(s): S83.207A - Unspecified tear of unspecified meniscus, current injury, left knee, initial encounter Plan: Patient does report a distant history of hyperextending injury while hiking. Will send for MRI to evaluate for meniscal/soft tissue tear due to patient's continued left knee pain/instability and intermittent swelling. Orders: Orders XR knee LT 3V 02/14/24 M25.562 - Pain in left knee MR knee LT wo con 02/14/24 S83.207A - Unspecified tear of unspecified meniscus, current injury, left knee, initial encounter PT Evaluation and Treatment 02/14/24 M25.562 - Pain in left knee Coding Level of Care Code Est Pt Level 3 (50748) Diagnoses Chronic pain of left knee M25.562; G89.29 Chronicity: chronic Tear of left meniscus as current injury, initial encounter S83.207A Encounter type: initial encounter
[2024-02-14 15:23] VITALS: BP 106/76; PULSE 65; O2SAT 97; BMI 27.1
== END 2024-02-14 17:19 | disposition home or self-care (01) ==
PROVIDERS: PCP Physician Assistant; Visit Provider Physician Assistant
DX: M25.562 Pain in left knee (principal); G89.29 Other chronic pain; S83.207A Unspecified tear of unspecified meniscus, current injury, left knee, initial encounter
CPT/HCPCS: 99213

== ENCOUNTER 2024-03-19 14:43 | Outpatient (RCR) | payer BC, SELFPAY ==
--- NOTE | 2024-03-19 16:01 | MHC.PT.EP ---
[facility] [place] Office [place] Office [place] Office [address] Dee Wooten [address] [phone] F: [phone] F: [phone] F: [phone] F: [phone] Physical Therapy Plan of Care Date of Evaluation: 03/19/24 Date of Surgery: Diagnosis: LEFT knee pain (MD Dx) Possible meniscal tear (PT Dx) (RS) Assessment: Patient is a pleasant 58 y.o. female who is referred to PT by Benja Jones PA-C with Dx of LEFT knee pain. PT diagnosis is potential meniscal tear, due to instability. Patient impairments include pain, swelling, limited knee ROM, weakness in LEFT knee and hip, antalgic gait. Patient current functional limitations are descending stairs, down a ramp/hill, bending/squatting. She may be a good candidate for orthopedic doctor dependent upon MRI results. Patient will benefit from skilled PT to address aforementioned impairments and functional limitations to meet established goals. Frequency and Duration: The patient will be seen 1-2x/week for 4 weeks Short Term Goals: 2 weeks Patient demonstrates consistency and independence with HEP to self manage symptoms. First Aid Director Goals: 4 weeks Patient presents with increased LEFT knee extension 0 degrees to normalize gait pattern. Patient presents with increased LEFT quad strength 4+/5 to be able to descend stairs reciprocally. Treatment Plan: Modalities to reduce pain, spasms and effusion. Manual therapy to restore motion and function. Therapeutic exercise to improve strength and flexibility. Neuromuscular re-education for posture and balance. Therapeutic activities to return to functional activities of daily living. Electronically signed by: Juan Ko, PT, DPT Please sign and return to therapist. Thank you for your referral.
--- NOTE | 2024-05-08 14:44 | MHC.PT.DC ---
[facility] [place] Office [place] Office [place] Office [address] [phone] F: [phone] F: [phone] F: [phone] F: [phone] Physical Therapy Discharge Report Diagnosis: LEFT knee pain (MD Dx) Possible meniscal tear (PT Dx) (RS) Date of Surgery: Date of Evaluation: 03/19/24 Date of Discharge: 05/08/24 Treatments to Date: 1 Cancellations to Date: 2 No Shows to Date: 2 Discharge Status: Visit Non-compliance Discharge Summary: Margarita did not show to any FUP appointments after her initial evaluation. Her initial evaluation indicated, Patient is a pleasant 58 y.o. female who is referred to PT by Benja Jones PA-C with Dx of LEFT knee pain. PT diagnosis is potential meniscal tear, due to instability. Patient impairments include pain, swelling, limited knee ROM, weakness in LEFT knee and hip, antalgic gait. Patient current functional limitations are descending stairs, down a ramp/hill, bending/squatting. She may be a good candidate for orthopedic doctor dependent upon MRI results. Patient will benefit from skilled PT to address aforementioned impairments and functional limitations to meet established goals. Electronically signed by: Juan Ko, PT, DPT Please sign and return to therapist. Thank you for your referral.
== END 2024-05-08 14:45 | disposition home or self-care (01) ==
LOC: HO.PT 14:43
PROVIDERS: PCP Physician Assistant; Visit Provider Physician Assistant
DX: M25.562 Pain in left knee (principal)
CPT/HCPCS: 97110; 97161

== ENCOUNTER 2024-03-26 19:25 | Outpatient (REF) | payer BC, SELFPAY ==
--- NOTE | ~2024-03-26 | MR_ITS ---
EXAMINATION: MR KNEE WITHOUT CONTRAST, LEFT CLINICAL INFORMATION: Left knee pain and swelling. COMPARISON: Radiographs 09/17/2018. TECHNIQUE: MRI of the knee without contrast was performed using routine sequences on a high-field scanner. FINDINGS: MENISCI: Medial Meniscus: Irregular tearing along the superior articular surface of the posterior horn and along the inner margin of the extruded meniscal body. Lateral Meniscus: Inner margin fraying of the posterior horn near the meniscal root. Otherwise intact. LIGAMENTS: Cruciate: Intact. Collateral: Intact. EXTENSOR MECHANISM: Intact. ARTICULAR CARTILAGE/BONE: Patellofemoral Compartment: Cartilage thinning and surface irregularity with subchondral marrow edema of the medial and lateral patellar facets. Medial Compartment: Diffuse cartilage thinning with areas of full-thickness loss throughout the weightbearing aspect with degenerative cysts, marrow edema, and prominent marginal osteophytes. Lateral Compartment: Near full-thickness cartilage loss along the lateral tibial spine with subchondral marrow edema. Small marginal osteophytes. JOINT FLUID AND BURSAE: Small joint effusion with mild diffuse synovitis. There is a moderately-sized Courtney's cyst. MR/MR knee LT wo con IMPRESSION: 1. Irregular tearing along the superior articular surface of the posterior horn of the medial meniscus and along the inner margin of the extruded meniscal body. 2. Inner margin fraying of the posterior horn of the lateral meniscus near the meniscal root. 3. Severe medial compartment and mild patellofemoral/lateral compartment osteoarthritis. Small joint effusion and Courtney's cyst.
== END 2024-03-26 19:26 | disposition home or self-care (01) ==
LOC: HO.MRI 19:25
PROVIDERS: PCP Physician Assistant; Visit Provider Physician Assistant
DX: S83.207A Unspecified tear of unspecified meniscus, current injury, left knee, initial encounter (principal)
CPT/HCPCS: 73721

== ENCOUNTER 2024-05-02 09:10 | Outpatient (AMB) | payer BC, SELFPAY ==
--- NOTE | 2024-05-02 09:11 | A.OFFVIS_ITS ---
Intake Visit Reasons: Left knee pain Intake Note: Margarita is a 58 year old female who presents with complaints of progressively worsening left knee pain. The patient states that she injured her knee over 1 year ago when she slipped on the ice and fell. She twisted her knee and had pain along the medial aspect of her knee. She has failed the last 3 months of a home exercise program, anti-inflammatory medicines and Tylenol. Her left knee pain is interfering with her activities of daily living and her ability to sleep well through the night. The patient states that she is not interested in a cortisone injection because one of her acquaintances had a bad reaction to a cortisone injection. She wishes to hold off on surgery if at all possible. Allergies adhesive [BANDAGE,ADHESIVE] Allergy (Intermediate, Verified 05/02/24 09:11) RASH morphine [MORPHINE] Allergy (Intermediate, Verified 05/02/24 09:11) RASH pneumococcal vaccine [From Pneumovax-23] Adverse Reaction (Intermediate, Verified 05/02/24 09:11) Myalgias Medication List - Last Reconciled 05/02/24 by Robbie Fink MD fluticasone furoate-vilanterol 100-25 mcg/dose (Breo Ellipta) 1 inh inhalation DAILY 30 days valacyclovir 500 mg PO BID zolpidem 10 mg PO BEDTIME 30 days [facility] Surgical History History of varicose veins History of cholecystectomy Family History Father CVD (cardiovascular disease) S/P triple vessel bypass Colon cancer Bladder cancer Mother No problems noted. Brother No problems noted. Brother No problems noted. Sister In good health Sister In good health Son In good health Daughter In good health Daughter In good health Social History Housing: House Alcohol intake: never Patient Tobacco Use Status: Never used Tobacco Second Hand Smoke Exposure: No service: No Current occupational status: employed Current occupation: [employer] Cognitive needs: No Hearing needs: No Vision needs: No Physical Exam Const Other: Well-nourished well-developed very friendly female awake alert and oriented x3 in no acute distress Extrem Other: Bilateral lower extremity examination shows good capillary refill, no skin lesions noted, normal sensation light touch Left knee examination shows a minimal effusion, palpable crepitus with range of motion, pain with range of motion, range of motion from -3 degrees to 115 degrees, no instability Results Reviewed Results Reviewed: X-rays of the patient's left knee taken today show moderate joint space narrowing most significant in the medial compartment, subchondral sclerosis, no acute bony abnormalities Assessment & Plan Assessment & Plan (1) Left knee pain: Code(s): M25.562 - Pain in left knee Category: Medical Qualifiers: Chronicity: chronic Qualified Code(s): M25.562 - Pain in left knee; G89.29 - Other chronic pain Plan Ms. Valadez presents with left knee pain due to degenerative joint disease. I had a lengthy discussion with the patient regarding the treatment options. She wishes to hold off on total knee replacement surgery for as long as possible. I agree with this plan. The patient has failed the last 3 months of conservative treatment. Thus, I will see whether not her insurance company will cover a viscosupplementation injection such as Durolane. I will see her back once the injection is available. Feel free to call me at any time should questions regarding her orthopedic management arise. I spent 21 minutes in reviewing the patient's records and imaging studies, seeing the patient and documenting in the medical record. Orders: Orders XR knee LT 3V Today G89.29 - Other chronic pain, M25.562 - Pain in left knee Coding Level of Care Code New Pt Level 3 (64440) Diagnoses Chronic pain of left knee M25.562; G89.29 Chronicity: chronic
== END 2024-05-02 09:36 | disposition home or self-care (01) ==
PROVIDERS: PCP Physician Assistant; Referring Provider Physician Assistant; Visit Provider Orthopaedic Surgery
DX: M25.562 Pain in left knee (principal); G89.29 Other chronic pain
CPT/HCPCS: 99203

== ENCOUNTER 2024-05-02 09:33 | Outpatient (REF) | payer BC, SELFPAY ==
--- NOTE | ~2024-05-02 | XR_ITS ---
EXAMINATION: XR KNEE, LEFT CLINICAL INFORMATION: Left knee pain. COMPARISON: Left knee x-rays of 09/17/2018. TECHNIQUE: Three views of the left knee. FINDINGS: Severe narrowing of the medial knee joint space with subarticular sclerosis and irregularity of the articular margins. Moderate narrowing of the lateral knee joint space. There is minimal medial subluxation of the femoral condyles over the tibial plateau. Normal osseous mineralization. There is no evidence of acute fracture or dislocation. Narrowing of the patellofemoral joint space. Suprapatellar joint effusion is noted. No soft tissue calcifications. XR/XR knee LT 3V IMPRESSION: Tricompartmental osteoarthritic changes in the left knee with severe osteoarthritic changes in the medial compartment. There is interval worsening of the arthritic changes in the medial compartment.
== END 2024-05-02 09:34 | disposition home or self-care (01) ==
LOC: HO.HOSX 09:33
PROVIDERS: Visit Provider Orthopaedic Surgery
DX: M25.562 Pain in left knee (principal); G89.29 Other chronic pain
CPT/HCPCS: 73562

== ENCOUNTER 2024-06-19 14:38 | Outpatient (AMB) | payer BC, SELFPAY ==
[2024-06-19 14:40] VITALS: BMI 27.1
--- NOTE | 2024-06-19 14:40 | A.OFFVIS_ITS ---
Vital Signs 06/19/24 14:40 Height 5 ft 5 in Weight 163 lb BMI 27.1 Intake Visit Reasons: left Durolane Gel Injection Intake Note: peri is a 58 year old female who presents with complaints of progressively worsening left knee pain. The patient states that she injured her knee over 1 year ago when she slipped on the ice and fell. She twisted her knee and had pain along the medial aspect of her knee. She has failed the last 3 months of a home exercise program, anti-inflammatory medicines and Tylenol. Her left knee pain is interfering with her activities of daily living and her ability to sleep well through the night. The patient states that she is not interested in a cortisone injection because one of her acquaintances had a bad reaction to a cortisone injection. She wishes to hold off on surgery if at all possible. Allergies adhesive [BANDAGE,ADHESIVE] Allergy (Intermediate, Verified 05/02/24 09:11) RASH morphine [MORPHINE] Allergy (Intermediate, Verified 05/02/24 09:11) RASH pneumococcal vaccine [From Pneumovax-23] Adverse Reaction (Intermediate, Verified 05/02/24 09:11) Myalgias Medication List - Last Reconciled 06/20/24 by Robbie Fink MD fluticasone furoate-vilanterol 100-25 mcg/dose (Breo Ellipta) 1 inh inhalation DAILY 30 days valacyclovir 500 mg PO BID zolpidem 10 mg PO BEDTIME 30 days [facility] Surgical History History of varicose veins History of cholecystectomy Family History Father CVD (cardiovascular disease) S/P triple vessel bypass Colon cancer Bladder cancer Mother No problems noted. Brother No problems noted. Brother No problems noted. Sister In good health Sister In good health Son In good health Daughter In good health Daughter In good health Social History Housing: House Alcohol intake: never Patient Tobacco Use Status: Never used Tobacco Second Hand Smoke Exposure: No service: No Current occupational status: employed Current occupation: [employer] Cognitive needs: No Hearing needs: No Vision needs: No Physical Exam Vital Signs: BMI result Body Mass Index 27.1 Const Other: Well-nourished well-developed very friendly female awake alert and oriented x3 in no acute distress Extrem Other: Bilateral lower extremity examination shows good capillary refill, no skin lesions noted, normal sensation light touch Left knee examination shows a minimal effusion, palpable crepitus with range of motion, pain with range of motion, range of motion from -3 degrees to 115 degrees, no instability Office Procedures Joint Injection/Aspiration Joint Injection/Aspiration Primary Site: left knee Prep: site was prepped using aseptic technique Injected: 60 mg of (Durolane viscosupplementation) and 1% plain lidocaine Procedure: The patient tolerated the procedure well Coding - Large joint Procedure code (CPT) selection complete Results Reviewed Results Reviewed: X-rays of the patient's left knee taken previously show joint space narrowing, subchondral sclerosis, no acute bony abnormalities Assessment & Plan Assessment & Plan (1) Osteoarthritis of left knee: Code(s): M17.12 - Unilateral primary osteoarthritis, left knee Category: Medical Plan Ms. Valadez presents with left knee pain due to degenerative joint disease. I had a lengthy discussion with the patient regarding the treatment options. The risks and benefits of a Durolane viscosupplementation injection were discussed at length with the patient. The patient wished to proceed. She tolerated the injection well. She will continue with her home exercise program. She will contact me prior to her follow-up appointment in 3 months should any questions or concerns arise. Feel free to call me at any time should questions regarding her orthopedic management arise. I spent 22 minutes in reviewing the patient's records and imaging studies, seeing the patient and documenting in the medical record. Orders: Orders AMB Joint Injection/Aspiration 06/19/24 M17.12 - Unilateral primary osteoarthritis, left knee Coding Level of Care Code Est Pt Level 3 (24790) Complex EM visit Add On G2211 Diagnoses Osteoarthritis of left knee M17.12 CPT Codes Coding - 84224 Large joint: 20721 - Large joint ([id number])
== END 2024-06-19 15:06 | disposition home or self-care (01) ==
PROVIDERS: PCP Physician Assistant; Referring Provider Physician Assistant; Visit Provider Orthopaedic Surgery
DX: M17.12 Unilateral primary osteoarthritis, left knee (principal)
CPT/HCPCS: 20610; 99213

== ENCOUNTER → 2024-06-19 14:38 | Outpatient (BNVA) | payer BC, SELFPAY | PROVIDERS: PCP Physician Assistant; Visit Provider Orthopaedic Surgery | DX: M17.12 Unilateral primary osteoarthritis, left knee (principal) | CPT/HCPCS: 20610; J7318 ==

== ENCOUNTER 2024-09-03 14:55 | Outpatient (AMB) | payer BC, SELFPAY ==
--- NOTE | 2024-09-03 15:09 | MHC.PC.OV ---
Vital Signs 09/03/24 15:15 Height 5 ft 5 in Weight 168 lb BMI 28.0 BP 120/76 Blood Pressure Location Lt brachial Position Sitting Pulse 72 Pulse Source Pulse Oximeter Pulse Oximetry (%) 99 Oxygen Delivery Method Room Air Intake Visit Reasons: Hand nerve pain Data Scientist Required: No Accompanied by: Self / Same As Patient Allergies adhesive [BANDAGE,ADHESIVE] Allergy (Intermediate, Verified 09/03/24 15:32) RASH morphine [MORPHINE] Allergy (Intermediate, Verified 09/03/24 15:32) RASH pneumococcal vaccine [From Pneumovax-23] Adverse Reaction (Intermediate, Verified 09/03/24 15:32) Myalgias Medication List - Last Reconciled 09/03/24 by Benja Jones PA-C fluticasone furoate-vilanterol 100-25 mcg/dose (Breo Ellipta) 1 inh inhalation DAILY 30 days valacyclovir 500 mg PO BID zolpidem 10 mg PO BEDTIME 30 days Tobacco use date assessed: 09/03/24 Dental Screening Dental Screen Date: 09/03/24 Did you have a dental visit in the last 12 months?: Yes Did you have a dental problem in the last 6 months where you did not have access to dental care?: No Was dental information given to patient?: Patient has dentist HPI Hand nerve pain HPI Details The patient is a 59-year-old female presenting with bilateral tendosynovitis, predominantly affecting the right hand. She reports significant pain in her thumbs, which began recently and has worsened over time. The pain is described as zinging and is more pronounced at the base of the right thumb. She denies wrist involvement, suggesting absence of carpal tunnel syndrome. The condition improved with rest over the past week but remains problematic. She noted a previous consultation with an pharmacy clinical specialist for her knee, during which an injection was administered, providing mental relief. In addition, the patient has a diagnosis of osteoarthritis in both hands and feet. The osteoarthritis in her hands was confirmed during consultations, and symptoms include swelling and pain, particularly in the thumbs. Pain management techniques have involved the use of topical anti-inflammatories such as Voltaren, which she applies to her hands and feet. She acknowledges some relief from these treatments but expresses discomfort with regular use due to gastrointestinal side effects from similar medications, such as ibuprofen. The patient also has past foot x-rays confirming osteoarthritis, with sporadic swelling noted as a ball on top of her foot. There is no indication of any surgical interventions thus far, with treatment focused on symptom management and physical therapy considerations. [facility] Surgical History History of varicose veins History of cholecystectomy Family History Father CVD (cardiovascular disease) S/P triple vessel bypass Colon cancer Bladder cancer Mother No problems noted. Brother No problems noted. Brother No problems noted. Sister In good health Sister In good health Son In good health Daughter In good health Daughter In good health Social History Housing: House Alcohol intake: never Patient Tobacco Use Status: Never used Tobacco e-Cigarette/Vaping Use: Never Used Second Hand Smoke Exposure: No service: No Current occupational status: employed Current occupation: [employer] Cognitive needs: No Hearing needs: No Vision needs: No Questionnaire Thrive Questionnaire Date Thrive assessed: 10/11/23 MAURY-7 AMB Questionnaire MAURY-7 Date MAURY - 7 assessed: 10/11/23 Source: Developed by Drs. Franklin Velasco, Erna Prabhakar, Sandip Cooper and colleagues, with an educational delmy from [employer]. Review of Systems Const Denies headache(s) Eyes Denies loss of vision ENT Denies vertigo, Denies dizziness, Denies headache(s) and Denies sore throat Card Denies chest pain, Denies leg edema and Denies lightheadedness Resp Denies cough, Denies hemoptysis and Denies wheezing GI Denies abdominal pain, Denies melena, Denies constipation, Denies diarrhea and Denies vomiting Denies urinary frequency, Denies dysuria and Denies urinary urgency Musc Denies arthralgias, Denies joint swelling, Denies numbness and Denies tingling Neuro Denies Abnormal speech present, Denies behavioral changes, Denies vertigo, Denies dizziness, Denies headache(s), Denies loss of vision, Denies memory loss, Denies numbness and Denies tingling Psych Denies anxiety, Denies behavioral changes, Denies depression, Denies memory loss and Denies panic attacks Thang/Lymph Denies easy bleeding and Denies easy bruising Aller/Immun Denies wheezing Physical exam (Primary Care) Vital Signs: Last Vital Signs Pulse 72 09/03/24 15:15 BP 120/76 09/03/24 15:15 Pulse Ox 99 09/03/24 15:15 Oxygen Delivery Method Room Air 09/03/24 15:15 BMI result Body Mass Index 28.0 Tobacco/Smoking Status: Tobacco use Status Tobacco use date assessed 09/03/24 09/03/24 15:16 Patient Tobacco Use Status Never used Tobacco 09/03/24 15:09 e-Cigarette/Vaping Use Never Used 09/03/24 15:16 Thrive Assessment: Date of Thrive Assessment Date Thrive assessed 10/11/23 09/03/24 15:09 Const General: healthy appearing, no acute distress, alert and awake Nutritional Appearance: well nourished Orientation/consciousness: oriented to person, oriented to place and oriented to time HENMT Ears: TM's normal bilaterally General nose exam: Normal nasal mucous membranes and turbinates present Eyes Conjunctivae: conjunctivae normal Sclerae: sclerae normal Pupils: Equal, round and reactive pupils present Neck Neck: Yes no lymphadenopathy and Yes no JVD Thyroid: Thyroid normal Carotids: no bruits Resp Effort & Inspection: normal respiratory effort and not tachypneic Auscultation: no crackles, no rales, no rhonchi and no wheezes Cardio Rate: regular rate Rhythm: regular rhythm Heart sounds: no murmurs and normal S1 and S2 GI Palpation (GI): Soft to palpation, nontender, no hepatomegaly and no splenomegaly Auscultation: normal bowel sounds Skin General skin exam: no rashes or lesions noted and dry skin Neuro General: oriented to person, oriented to place and oriented to time Cranial nerves: Yes Equal, round and reactive pupils present Speech: No Abnormal speech present Gait exam (Neuro): Normal gait present Motor exam (neuro): no tremor noted Extrem Right upper extremity: full ROM Left upper extremity: full ROM Hand/finger images: 1. PRETTY SIGNIFICANT NOTABLE ARTHRITIC NODULES OVERALL DIGITS Right lower extremity: full ROM; no edema Left lower extremity: full ROM; no edema Psych Mental Status: mental status grossly normal Speech and movement: Normal speech and movement present Affect: normal affect Attitude: cooperative Thought process: Normal thought process present Office Procedures Flu Questionnaire Does the patient have a severe egg allergy?: No Does the patient have severe life threatening allergies?: No Does the patient have a fever or illness today?: No Has the patient ever had Guillain-[place] Syndrome?: No Has the patient ever had any past reaction to a flu shot?: No Immunizations Fluarix Triv [id number] (PF) 45 mcg (15 mcg x 3)/0.5 mL IM syringe Performing Provider: Benja Jones PA-C Performing Location: [facility] Documented (not given) by: MICHELLE Schmitz on 09/03/24 15:16 Reason Not Given: Patient Refused Coding Level of Care Code Est Pt Level 3 (61395) Diagnoses De Quervain's disease (radial styloid tenosynovitis) M65.4 Primary osteoarthritis of first metatarsophalangeal (MTP) joint M19.079 Assessment & Plan Assessment & Plan (1) De Quervain's disease (radial styloid tenosynovitis): Code(s): M65.4 - Radial styloid tenosynovitis [de Quervain] Category: Medical Plan: Signs symptoms of tenosynovitis bilateral hand restart 3 arthritis. She reports she is having pain to the point where it is affecting her ability to do her job. She would like to see and risks specialist for possible injection. (2) Primary osteoarthritis of first metatarsophalangeal (MTP) joint: Code(s): M19.079 - Primary osteoarthritis, unspecified ankle and foot Category: Medical Plan: X-ray of the right foot in 2020 showing--> Hallux valgus deformity and mild arthritis soft tissue swelling at the first MTP joint. Degenerative changes in the midfoot at the navicular cuneiform and MTT joints. Orders: Orders Lipid Panel Today E78.2 - Mixed hyperlipidemia Complete Blood Count no Diff Today J45.30 - Mild persistent asthma, uncomplicated Influenza [id number] Immunization Today Z23 - Encounter for immunization Comprehensive [place]. Panel Fast Today E78.2 - Mixed hyperlipidemia Referrals Orthopedics Referral M65.4 - Radial styloid tenosynovitis [de Quervain] Podiatry Referral M19.079 - Primary osteoarthritis, unspecified ankle and foot Medications: Refilled zolpidem 10 mg PO BEDTIME 30 days 30 tabs 5RF G47.00 - Insomnia, unspecified
[2024-09-03 15:15] VITALS: BP 120/76; PULSE 72; O2SAT 99; BMI 28.0
== END 2024-09-03 15:42 | disposition home or self-care (01) ==
PROVIDERS: PCP Physician Assistant; Visit Provider Physician Assistant
DX: M65.4 Radial styloid tenosynovitis [de Quervain] (principal); M19.079 Primary osteoarthritis, unspecified ankle and foot; Z23 Encounter for immunization

== ENCOUNTER → 2024-09-03 14:55 | Outpatient (BNVA) | payer BC, SELFPAY | PROVIDERS: PCP Physician Assistant; Visit Provider Physician Assistant | DX: M65.4 Radial styloid tenosynovitis [de Quervain] (principal); M19.042 Primary osteoarthritis, left hand; M19.041 Primary osteoarthritis, right hand; M19.072 Primary osteoarthritis, left ankle and foot; M19.071 Primary osteoarthritis, right ankle and foot; Z28.21 Immunization not carried out because of patient refusal | CPT/HCPCS: 90471 ==

== ENCOUNTER 2024-09-18 14:45 | Outpatient (AMB) | payer BC, SELFPAY ==
--- NOTE | 2024-09-18 14:46 | MHC.OFFVIS ---
Vital Signs 09/18/24 14:49 Height 5 ft 5 in Weight 168 lb BMI 28.0 Intake Visit Reasons: Left knee pain Intake Note: Margarita is a 59 year old female who presents for follow-up of her left knee pain. The patient has had cortisone injections in the past which gave her no relief. She has also had Durolane viscosupplementation injections which gave her very good relief. She has done physical therapy exercises which aggravated her pain. She has also tried Tylenol and anti-inflammatory medicines which gave her only mild relief. She wishes to hold off on surgery if at all possible. Allergies adhesive [BANDAGE,ADHESIVE] Allergy (Intermediate, Verified 09/18/24 14:49) RASH morphine [MORPHINE] Allergy (Intermediate, Verified 09/18/24 14:49) RASH pneumococcal vaccine [From Pneumovax-23] Adverse Reaction (Intermediate, Verified 09/18/24 14:49) Myalgias Medication List - Last Reconciled 09/18/24 by Robbie Fink MD fluticasone furoate-vilanterol 100-25 mcg/dose (Breo Ellipta) 1 inh inhalation DAILY 30 days valacyclovir 500 mg PO BID zolpidem 10 mg PO BEDTIME 30 days [facility] Surgical History History of varicose veins History of cholecystectomy Family History Father CVD (cardiovascular disease) S/P triple vessel bypass Colon cancer Bladder cancer Mother No problems noted. Brother No problems noted. Brother No problems noted. Sister In good health Sister In good health Son In good health Daughter In good health Daughter In good health Social History Housing: House Alcohol intake: never Patient Tobacco Use Status: Never used Tobacco e-Cigarette/Vaping Use: Never Used Second Hand Smoke Exposure: No service: No Current occupational status: employed Current occupation: [employer] Cognitive needs: No Hearing needs: No Vision needs: No Physical Exam Vital Signs: BMI result Body Mass Index 28.0 Const Other: Well-nourished well-developed very friendly female awake alert and oriented x3 in no acute distress Extrem Other: Bilateral lower extremity examination shows good capillary refill, no skin lesions noted, normal sensation light touch Left knee examination shows a minimal effusion, palpable crepitus pain with range of motion, no instability, range of motion from -3 degrees to 115 degrees Results Reviewed Results Reviewed: X-rays of the patient's left knee taken previously show joint space narrowing, subchondral sclerosis, no acute bony abnormalities Assessment & Plan Assessment & Plan (1) Left knee pain: Code(s): M25.562 - Pain in left knee Category: Medical Qualifiers: Chronicity: chronic Qualified Code(s): M25.562 - Pain in left knee; G89.29 - Other chronic pain (2) Osteoarthritis of left knee: Code(s): M17.12 - Unilateral primary osteoarthritis, left knee Category: Medical Plan Ms. Valadez presents with left knee pain due to osteoarthritis. I had a lengthy discussion with the patient regarding the treatment options. She wishes to hold off on surgery for as long as possible. I agree with this plan. She has not gotten good relief from cortisone injections in the past. I will see whether or not the patient's insurance company will cover another Durolane viscosupplementation injection. I will see her back once the injection is available. She will continue with her activity modifications in the meantime. Feel free to call me at any time should questions regarding her orthopedic management arise. I spent 21 minutes in reviewing the patient's records and imaging studies, seeing the patient and documenting in the medical record. Coding Level of Care Code Est Pt Level 3 (97115) Complex EM visit Add On G2211 Diagnoses Chronic pain of left knee M25.562; G89.29 Chronicity: chronic Osteoarthritis of left knee M17.12
[2024-09-18 14:49] VITALS: BMI 28.0
== END 2024-09-18 15:09 | disposition home or self-care (01) ==
PROVIDERS: PCP Physician Assistant; Visit Provider Orthopaedic Surgery
DX: M25.562 Pain in left knee (principal); G89.29 Other chronic pain; M17.12 Unilateral primary osteoarthritis, left knee
CPT/HCPCS: 99213

== ENCOUNTER 2024-09-25 08:25 | Outpatient (REF) | payer BC, SELFPAY | END 2024-09-25 08:26 | disposition home or self-care (01) | LOC: HO.HOSX 08:25 | DX: M79.642 Pain in left hand (principal); M79.641 Pain in right hand | CPT/HCPCS: 73130 ==

== ENCOUNTER 2024-09-25 15:19 | Outpatient (AMB) | payer BC, SELFPAY ==
--- NOTE | 2024-09-25 15:24 | A.OFFVIS_ITS ---
Vital Signs 09/25/24 15:36 Height 5 ft 5 in Weight 165 lb BMI 27.5 Handedness Right Intake Visit Reasons: Newprob-B/L hand swelling pain/RT hand worse Intake Note: Margarita is a 59 year old right hand dominant female who presents today for a new problem visit for his bilateral hand pain and swelling, right greater than left. Reports numbness and tingling during the morning when she wakes up, occasionally she gets numbness when her hands are cold right hand 2nd and 3rd digits shooting pain on dorsal aspect of right hand, right thumb at CMC joint that radiates into wrist. left hand 2nd and 3rd occasionally depending on what she is doing. gripping, grasping, pinching, and holding objects, has dropped objects in past. Pain with flexion and extension of bilateral wrist, right is much worse. Denies any past treatment to her bilateral hands. hx of raynaud's however she treated herself with medicinal mushrooms and tea and says this went away after Allergies adhesive [BANDAGE,ADHESIVE] Allergy (Intermediate, Verified 09/25/24 15:36) RASH morphine [MORPHINE] Allergy (Intermediate, Verified 09/25/24 15:36) RASH pneumococcal vaccine [From Pneumovax-23] Adverse Reaction (Intermediate, Verified 09/25/24 15:36) Myalgias HPI HPI Newprob-B/L hand swelling pain/RT hand worse: Details: Patient is a 59-year-old female who presents for new problem evaluation of bilateral hand pain, swelling, and numbness and tingling, ongoing for several years, with the right hand being worse in the left. The patient states that her numbness and tingling affects the thumb, index, and middle fingers of bilateral hands. Patient also states that her pain is worst at the base of bilateral thumbs, with the right hand hurting far more than the left. Patient also reports pain with range of motion of the bilateral wrists. No other acute complaints or concerns at this time. [facility] Surgical History History of varicose veins History of cholecystectomy Family History Father CVD (cardiovascular disease) S/P triple vessel bypass Colon cancer Bladder cancer Mother No problems noted. Brother No problems noted. Brother No problems noted. Sister In good health Sister In good health Son In good health Daughter In good health Daughter In good health Social History Housing: House Alcohol intake: never Patient Tobacco Use Status: Never used Tobacco e-Cigarette/Vaping Use: Never Used Second Hand Smoke Exposure: No service: No Current occupational status: employed Current occupation: [employer] Cognitive needs: No Hearing needs: No Vision needs: No Review of Systems Const All systems reviewed & are unremarkable except as noted in HPI and below Physical Exam Vital Signs: BMI result Body Mass Index 27.5 Extrem Other: Patient is alert, oriented, and in no acute distress. Neuro: Normal sensation of the tips of all digits of the bilateral hand at this time Vascular: Cap refill brisk Pain: Patient reports tenderness to palpation about the CMC joint of the right thumb Positive CMC grind on the right Negative Yoli bilaterally Patient reports pain with range of motion testing of the bilateral wrists ROM: Patient is able to make a closed fist and extend all digits of bilateral hands fully, but reports some discomfort in the thumbs when doing so Patient is able to flex and extend the bilateral wrists fully, but again reports discomfort when doing so Skin: No lacerations or abrasions. General: No ecchymosis, erythema, or evidence of infection. Psych: Appears grossly normal Affect normal Attitude cooperative Results Reviewed Results Reviewed: X-rays obtained in the office today and independently reviewed by me, Perfecto Bai PA-C, demonstrate moderate to severe degenerative changes of bilateral hands and wrist, with noted arthritis in the bilateral CMC joints of the thumbs. Assessment & Plan Assessment & Plan (1) Arthritis of carpometacarpal (CMC) joint of both thumbs: Code(s): M18.0 - Bilateral primary osteoarthritis of first carpometacarpal joints Category: Medical (2) Numbness and tingling in both hands: Code(s): R20.0 - Anesthesia of skin; R20.2 - Paresthesia of skin Category: Medical Plan 1. Basal joint arthritis of bilateral thumbs Patient is educated about this condition Patient is educated about the treatment options available At this time, patient states she would like to hold off on any injections, and would like to proceed with bracing Patient is provided with a comfort cool thumb spica brace to be worn with daytime activities Patient expresses that she may be interested in an injection down the road if she does not experience relief with activity modification and bracing 2. Numbness and tingling of bilateral hands Symptoms intermittent, daily, worse at night At this time, patient was referred for EMG and nerve conduction study for assessment of the health of the nerves of bilateral upper extremities Patient will follow-up after EMG and nerve conduction study for results review and discussion of further treatment options if indicated Patient was amenable to this plan Orders: Orders XR hand LT min 3V 09/25/24 M79.642 - Pain in left hand XR hand RT min 3V 09/25/24 M79.641 - Pain in right hand NE electromyogram (EMG) 09/25/24 R20.0 - Anesthesia of skin, R20.2 - Paresthesia of skin NE nerve conduction velocity 09/25/24 R20.0 - Anesthesia of skin, R20.2 - Paresthesia of skin Coding Level of Care Code New Pt Level 3 (60941) Diagnoses Arthritis of carpometacarpal (CMC) joint of both thumbs M18.0 Numbness and tingling in both hands R20.0; R20.2
[2024-09-25 15:36] VITALS: BMI 27.5
== END 2024-09-25 16:11 | disposition home or self-care (01) ==
PROVIDERS: PCP Physician Assistant
DX: M18.0 Bilateral primary osteoarthritis of first carpometacarpal joints (principal); R20.0 Anesthesia of skin; R20.2 Paresthesia of skin
CPT/HCPCS: 99203

== ENCOUNTER 2024-10-15 13:21 | Outpatient (AMB) | payer BC, SELFPAY ==
--- NOTE | 2024-10-15 13:24 | MHC.PC.OV ---
Vital Signs 10/15/24 13:30 Height 5 ft 5 in Weight 171 lb BMI 28.5 BP 110/68 Blood Pressure Location Lt brachial Position Sitting Pulse 61 Pulse Source Pulse Oximeter Pulse Oximetry (%) 97 Oxygen Delivery Method Room Air Intake Visit Reasons: Annual exam Intake Note: Patient is here today for a physical. [employer] Rol[employer] Covers Supervisor Required: No Accompanied by: Self / Same As Patient Allergies adhesive [BANDAGE,ADHESIVE] Allergy (Intermediate, Verified 10/15/24 13:33) RASH morphine [MORPHINE] Allergy (Intermediate, Verified 10/15/24 13:33) RASH pneumococcal vaccine [From Pneumovax-23] Adverse Reaction (Intermediate, Verified 10/15/24 13:33) Myalgias Medication List - Last Reconciled 10/15/24 by Benja Jones PA-C fluticasone furoate-vilanterol 100-25 mcg/dose (Breo Ellipta) 1 inh inhalation DAILY 30 days zolpidem 10 mg PO BEDTIME 30 days Tobacco use date assessed: 10/15/24 Dental Screening Dental Screen Date: 10/15/24 Did you have a dental visit in the last 12 months?: Yes Did you have a dental problem in the last 6 months where you did not have access to dental care?: No Was dental information given to patient?: Patient has dentist HPI Annual exam HPI Details Patient is a 59-year-old female here today for annual physical. Patient has a past medical history significant for polyarthralgia, asthma, insomnia .. Asthma: Has been fairly well controlled with p.r.n. use of her maintenance inhaler. Has not had to use any rescue albuterol inhaler. Interestingly asthma has been well controlled since using mushroom tea .. Hand arthritis: Has followed up with [facility] and be getting treatment for her arthritis. Of note her hand and wrist pain got significantly better when taking some time off during the holidays. .. Insomnia: Continues with nightly use of zolpidem with good effect for her sleep. .. 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 Unclear when her last Pap Colonoscopy: Done in [address] Cueva normal repeat 10 years. [facility] Medical History (Updated 10/15/24 @ 14:05 by Benja Jones PA-C) Sliding hiatal hernia Herpes simplex Dysphagia Surgical History History of varicose veins History of cholecystectomy Family History Father CVD (cardiovascular disease) S/P triple vessel bypass Colon cancer Bladder cancer Mother No problems noted. Brother No problems noted. Brother No problems noted. Sister In good health Sister In good health Son In good health Daughter In good health Daughter In good health Social History Housing: House Alcohol intake: never Patient Tobacco Use Status: Never used Tobacco e-Cigarette/Vaping Use: Never Used Second Hand Smoke Exposure: No service: No Current occupational status: employed Current occupation: [employer] Cognitive needs: No Hearing needs: No Vision needs: No Questionnaire PHQ-9 Over the last 2 weeks, how often have you been bothered by any of the following problems? 1. Little interest or pleasure in doing things: not at all 2. Feeling down, depressed, or hopeless: not at all 3. Trouble falling or staying asleep, or sleeping too much: not at all 4. Feeling tired or having little energy: several days 5. Poor appetite or overeating: not at all 6. Feeling bad about yourself - or that you are a failure or have let yourself or your family down: not at all 7. Trouble concentrating on things, such as reading the newspaper or watching television: not at all 8. Moving or speaking so slowly that other people could have noticed. Or the opposite - being so fidgety or restless that you have been moving around a lot more than usual: not at all 9. Thoughts that you would be better off or of hurting yourself in some way: not at all Total score: 1 Depression Screening Interpretation: Negative Depression Screening Done: Yes 90050 - PHQ-9 Billing: Yes Source: Developed by Drs. Franklin Velasco, Erna Prabhakar, Sandip Cooper and colleagues, with an educational demly from [employer]. Thrive Questionnaire Date Thrive assessed: 10/15/24 I am a: Patient What is your living situation today?: I have a steady place to live Within the past 12 months, did the food you bought not last and you didn't have the money to get more?: Never true Within the past 12 months, did you worry whether your food would run out before you got money to buy more?: Never true Do you have trouble paying for medicines?: No Do you have trouble getting transportation to medical appointments?: No Do you have trouble paying your heating and electricity bill?: No Do you have trouble taking care of your child, family member or friend?: No Do you have trouble with day-to-day activities such as bathing, preparing meals, shopping, managing finances, etc.?: No Are you currently unemployed and looking for a job?: No Are you interested in more education?: No Please select the resources that you would like help with: None Currently or been in a relationship where the following occur: I choose not to answer THRIVE Score: 0 AUDIT C Alcohol Use Questionnaire (AUDIT-C) 1. How often do you have a drink containing alcohol?: Never 2. How many drinks containing alcohol do you have on a typical day when you are drinking?: 1 or 2 3. How often do you have six or more drinks on one occasion?: Never Total Score: 0 MAURY-7 AMB Questionnaire MAURY-7 Date MAURY - 7 assessed: 10/15/24 Feeling nervous, anxious, or on edge: 0 = Not at all Not being able to stop or control worryin = Not at all Worrying too much about different things: 0 = Not at all Trouble relaxin = Not at all Being so restless that it is hard to sit still: 0 = Not at all Becoming easily annoyed or irritable: 0 = Not at all Feeling afraid as if something awful might happen: 0 = Not at all Total MAURY-7 score (0-4 normal; 5-9 mild; 10-14 moderate; 15-21 severe): 0 Source: Developed by Drs. Franklin Velasco, Erna Prabhakar, Sandip Cooper and colleagues, with an educational delmy from [employer]. MAURY-7 Assessment Billing MAURY-7 Assessment Tool: MAURY-7 Assessment 27887 ACT Questionnaire In the past 4 weeks, how much of the time did your asthma keep you from getting as much done at work, school or at home?: None of the time During the past 4 weeks, how often have you had shortness of breath?: Not at all During the past 4 weeks, how often did your asthma symptoms wake you up at night or earlier than usual in the morning?: Not at all During the past 4 weeks, how often have you had to use your rescue inhaler or nebulizer medication?: Not at all How would you rate your asthma control during the past 4 weeks?: Completely controlled ACT Interpretation: Negative Score: 25 Review of Systems Const Denies body aches, Denies chills, Denies excessive sweating, Denies fatigue, Denies fever(s) and Denies headache(s) Eyes Denies blurry vision ENT Denies dysphagia, Denies vertigo, Denies dizziness, Denies headache(s), Denies hearing loss and Denies tinnitus Card Denies chest pain, Denies chest pain with activity, Denies syncope, Denies irregular heart rhythm and Denies dyspnea Resp Denies chest congestion, Denies cough, Denies hemoptysis, Denies dyspnea and Denies wheezing GI Denies abdominal pain, Denies melena, Denies hematochezia, Denies coffee ground emesis, Denies dysphagia, Denies diarrhea, Denies nausea and Denies vomiting Denies urinary frequency, Denies dysuria, Denies urinary hesitancy and Denies urinary urgency Musc Denies arthralgias, Denies limited range of motion, Denies muscle cramps and Denies muscle weakness Skin/Breast Denies rash and Denies skin ulcer Neuro Denies Abnormal speech present, Denies confusion, Denies vertigo, Denies dizziness, Denies syncope, Denies headache(s), Denies memory loss and Denies seizure-like activity Psych Denies anxiety, Denies confusion, Denies depression, Denies memory loss, Denies panic attacks and Denies paranoia Endo Denies excessive sweating, Denies fatigue, Denies flushing, Denies polydipsia and Denies polyuria Aller/Immun Denies wheezing Physical exam (Primary Care) Vital Signs: Last Vital Signs Pulse 61 10/15/24 13:30 BP 110/68 10/15/24 13:30 Pulse Ox 97 10/15/24 13:30 Oxygen Delivery Method Room Air 10/15/24 13:30 BMI result Body Mass Index 28.5 Tobacco/Smoking Status: Tobacco use Status Tobacco use date assessed 10/15/24 10/15/24 13:26 Patient Tobacco Use Status Never used Tobacco 10/15/24 13:26 e-Cigarette/Vaping Use Never Used 10/15/24 13:26 PHQ-9: PHQ-9 Score PHQ-9: Total score 1 10/15/24 13:31 Depression Screening Interpretation: Negative Thrive Assessment: Date of Thrive Assessment Date Thrive assessed 10/15/24 10/15/24 13:26 Currently or been in a relationship where the following occur: I choose not to answer Const General: cooperative, comfortable, no acute distress, alert and awake; No confusion Orientation/consciousness: oriented to person, oriented to place, patient oriented x3 and No confusion HENMT Head: Yes normocephalic Ears: external ears normal and TM's normal bilaterally Face and sinus: No sinus tenderness Mouth: Normal oral and palatal mucosa present and tongue normal Teeth and gingiva: dentition normal and gingiva normal Throat: Yes posterior oropharynx normal, Yes tonsils normal and Yes uvula midline Eyes Conjunctivae: conjunctivae normal Sclerae: sclerae normal Pupils: Equal, round and reactive pupils present EOM: EOMs intact bilaterally Direct Ophthalmoscopy: No no photophobia Neck Neck: Yes no lymphadenopathy, No tender and Yes no JVD Thyroid: Thyroid normal Carotids: no bruits Chest Chest palpation & inspection: no tenderness Resp Effort & Inspection: normal respiratory effort, no audible wheezes, not labored and no stridor Auscultation: no crackles, no rales, no rhonchi and no wheezes Cardio Jugular venous distension: no JVD Rate: regular rate, not bradycardic and not tachycardic Rhythm: regular rhythm Bruits: no carotid bruits Peripheral pulses: Peripheral pulses 2+ throughout GI Inspection: Yes normal to inspection, No abdominal wall ecchymosis and No visible herniation Palpation (GI): Soft to palpation, nontender, no guarding, not rigid and No hepatosplenomegaly present Auscultation: normoactive bowel sounds General: Yes no CVA tenderness Back/Spine/Pelvis Back: no CVA tenderness and No back tenderness Cervical Spine: cervical ROM normal Thoracic/Lumbar Spine: thoracic and lumbar spine normal to inspection, straight leg raise negative bilaterally, No thoraco-lumbar ROM limited and No lumbar spinal tenderness Skin Lesions: no lesions Rashes: no rashes Wounds: no wounds Neuro General: oriented to person, oriented to place, patient oriented x3, CN's II-XI intact bilaterally and No confusion Cranial nerves: Yes Equal, round and reactive pupils present and Yes Normal accommodation reflex present Cognition (Neuro): normal cognition Speech: No Abnormal speech present Gait exam (Neuro): Normal gait present Motor exam (neuro): 5/5 motor strength present throughout Extrem Right upper extremity: full ROM; no cyanosis Left upper extremity: full ROM; no cyanosis Right lower extremity: no edema Left lower extremity: no edema Psych Appearance: grossly normal Mental Status: mental status grossly normal Affect: normal affect Attitude: cooperative Thought process: Normal thought process present Coding Level of Care Code Est Pt Prev Care 40-64y(51541) Diagnoses Annual physical exam Z00.00 Arthritis of carpometacarpal (CMC) joint of both thumbs M18.0 Mixed hyperlipidemia E78.2 Hyperlipidemia type: mixed hyperlipidemia Primary insomnia F51.01 Insomnia type: primary Encounter for screening mammogram for malignant neoplasm of breast Z12.31 Breast cancer screening modality: mammogram Cervical cancer screening Z12.4 Mild persistent asthma, unspecified whether complicated J45.30 Asthma severity: mild Asthma persistence: persistent Asthma complication type: unspecified Additional Codes MAURY-7 Assessment Billing - MAURY-7 Assessment Tool: MAURY-7 Assessment 44189 ([id number]) PHQ-9 - 62494 - PHQ-9 Billing: Yes ([id number]) Asthma Control Questionnaire - ACT Interpretation: Negative ([id number]) Assessment & Plan Assessment & Plan (1) Annual physical exam: Code(s): Z00.00 - Encounter for general adult medical examination without abnormal findings Category: Medical Plan: As per HPI (2) Arthritis of carpometacarpal (CMC) joint of both thumbs: Code(s): M18.0 - Bilateral primary osteoarthritis of first carpometacarpal joints Category: Medical Plan: Now followed by [facility]. Will be going for EMG testing in the next few weeks. Reports her and an wrist pain was much better taking time off of work. (3) HLD (hyperlipidemia): Code(s): E78.5 - Hyperlipidemia, unspecified Category: Medical Qualifiers: Hyperlipidemia type: mixed hyperlipidemia Qualified Code(s): E78.2 - Mixed hyperlipidemia Plan: Patient does have a history of borderline high cholesterol. (4) Insomnia: Code(s): G47.00 - Insomnia, unspecified Category: Medical Qualifiers: Insomnia type: primary Qualified Code(s): F51.01 - Primary insomnia Plan: Patient sleeping well on nightly use of zolpidem. (5) Breast cancer screening: Code(s): Z12.39 - Encounter for other screening for malignant neoplasm of breast Category: Medical Qualifiers: Breast cancer screening modality: mammogram Qualified Code(s): Z12.31 - Encounter for screening mammogram for malignant neoplasm of breast Plan: Will need new mammogram (6) Cervical cancer screening: Code(s): Z12.4 - Encounter for screening for malignant neoplasm of cervix Category: Medical Plan: Is in need for Pap screening (7) Asthma: Code(s): J45.909 - Unspecified asthma, uncomplicated Category: Medical Qualifiers: Asthma severity: mild Asthma persistence: persistent Asthma complication type: unspecified Qualified Code(s): J45.30 - Mild persistent asthma, uncomplicated Plan: Patient's asthma has been well controlled with only p.r.n. use of an albuterol inhaler. Not using any maintenance inhaler at this time.. Orders: Orders MM screening mammo BI Today Z12.31 - Encounter for screening mammogram for malignant neoplasm of breast Referrals [employer] TE[employer] Referral Z12.4 - Encounter for screening for malignant neoplasm of cervix
[2024-10-15 13:30] VITALS: BP 110/68; PULSE 61; O2SAT 97; BMI 28.5
== END 2024-10-15 13:54 | disposition home or self-care (01) ==
PROVIDERS: PCP Physician Assistant; Visit Provider Physician Assistant
DX: Z00.00 Encounter for general adult medical examination without abnormal findings (principal); M18.0 Bilateral primary osteoarthritis of first carpometacarpal joints; E78.2 Mixed hyperlipidemia; F51.01 Primary insomnia; Z12.31 Encounter for screening mammogram for malignant neoplasm of breast; Z12.4 Encounter for screening for malignant neoplasm of cervix; J45.30 Mild persistent asthma, uncomplicated

== ENCOUNTER → 2024-10-15 13:21 | Outpatient (BNVA) | payer BC, SELFPAY | PROVIDERS: PCP Physician Assistant; Visit Provider Physician Assistant | DX: Z00.00 Encounter for general adult medical examination without abnormal findings (principal); M18.0 Bilateral primary osteoarthritis of first carpometacarpal joints; E78.2 Mixed hyperlipidemia; F51.01 Primary insomnia; J45.30 Mild persistent asthma, uncomplicated | CPT/HCPCS: 96127; 96160 ==

== ENCOUNTER 2024-10-30 14:28 | Outpatient (REF) | payer BC, SELFPAY ==
--- NOTE | 2024-10-30 14:31 | EMG_ITS ---
Chief complaint: Hand pain, denies numbness Reason for referral: Evaluate for Carpal Tunnel Syndrome Referred by: Perfecto MCCORMICK Procedure done: Bilateral upper extremities NCS/EMG Precautions and/or limitations: None The limb temperature was monitored continuously and remained between 32-36 degrees C during the performance of the NCS. Nerve Conduction Studies Anti Sensory Summary Table ?Stim Site NR Onset (ms) Norm Onset (ms) Peak (ms) Norm Peak (ms) O-P Amp (?V) Norm O-P Amp Site1 Site2 Delta-0 (ms) Dist (cm) Sarthak (m/s) Norm Sarthak (m/s) Left Median Anti Sensory (2nd Digit) Wrist ? 2.9 3.6 <3.6 13.7 >10 Wrist 2nd Digit 2.9 14.0 48 Right Median Anti Sensory (2nd Digit) Wrist ? 2.6 3.4 <3.6 9.9 >10 Wrist 2nd Digit 2.6 14.0 54 Left Ulnar Anti Sensory (5th Digit) Wrist ? 0.9 3.4 <3.7 40.6 >15.0 Wrist 5th Digit 0.9 14.0 156 Right Ulnar Anti Sensory (5th Digit) Wrist ? 0.9 3.2 <3.7 16.9 >15.0 Wrist 5th Digit 0.9 14.0 156 Motor Summary Table ?Stim Site NR Onset (ms) Norm Onset (ms) O-P Amp (mV) Norm O-P Amp iAmp (mV) Amp (1st) (%) Site1 Site2 Delta-0 (ms) Dist (cm) Sarthak (m/s) Norm Sarthak (m/s) Left Median Motor (Abd Poll Brev) Wrist ? 3.3 <3.9 10.8 >4.5 13.1 100.0 Elbow Wrist 3.5 19.0 54 >45 Elbow ? 6.8 10.8 13.1 100.0 Right Median Motor (Abd Poll Brev) Wrist ? 3.0 <3.9 10.9 >4.5 13.1 100.0 Elbow Wrist 3.7 20.0 54 >45 Elbow ? 6.7 10.1 12.7 92.7 Left Ulnar Motor (Abd Dig Minimi) Wrist ? 2.6 <3.0 7.6 >5 9.1 100.0 B Elbow Wrist 2.9 19.0 66 >45 B Elbow ? 5.5 7.4 8.8 97.4 A Elbow B Elbow 1.5 10.0 67 >45 A Elbow ? 7.0 6.9 8.2 90.8 Right Ulnar Motor (Abd Dig Minimi) Wrist ? 2.5 <3.0 9.9 >5 11.8 100.0 B Elbow Wrist 3.1 19.0 61 >45 B Elbow ? 5.6 9.1 11.0 91.9 A Elbow B Elbow 1.3 10.0 77 >45 A Elbow ? 6.9 8.5 10.3 85.9 Comparison Summary Table ?Stim Site NR Peak (ms) Norm Peak (ms) P-T Amp (?V) Site1 Site2 Delta-P (ms) Norm Delta (ms) Right Median/Radial Dig I Comparison (Digit 1 - 10cm) Median ? 2.8 <2.9 90.0 Median Radial 0.4 Radial ? 2.4 <2.8 12.7 EMG ?Side Muscle Nerve Root Ins Act Fibs Psw Amp Dur Poly Recrt Int Pat Comment Right 1stDorInt Ulnar C8-T1 Nml Nml Nml Nml Nml 0 Nml Complete Right FlexCarRad Median C6-7 Nml Nml Nml Nml Nml 0 Nml Complete Right Biceps Musculocut C5-6 Nml Nml Nml Nml Nml 0 Nml Complete Right Triceps Radial C6-7-8 Nml Nml Nml Nml Nml 0 Nml Complete Right Deltoid Axillary C5-6 Nml Nml Nml Nml Nml 0 Nml Complete Left 1stDorInt Ulnar C8-T1 Nml Nml Nml Nml Nml 0 Nml Complete Left FlexCarRad Median C6-7 Nml Nml Nml Nml Nml 0 Nml Complete Left Biceps Musculocut C5-6 Nml Nml Nml Nml Nml 0 Nml Complete Left Triceps Radial C6-7-8 Nml Nml Nml Nml Nml 0 Nml Complete Left Deltoid Axillary C5-6 Nml Nml Nml Nml Nml 0 Nml Complete FINDINGS: All motor and sensory nerves tested showed normal latencies, amplitudes and conduction velocities. Concentric needle EMG was performed in selected muscles of the bilateral upper extremities. Study did not reveal signs of electric abnormalities as shown in the table above. IMPRESSION: 1. This is a normal study. 2. There is no electrodiagnostic evidence for median neuropathy, ulnar neuropathy, brachial plexopathy, or cervical radiculopathy. Thank you for your kind referral. Gardenia Brink MD, CHARITO Board Certified, [place] Board [employer] and Rehabilitation (ABPMR) Board Certified, [place] Board of Electrodiagnostic Medicine (ABEM) CODIN [phone] x 2 MTDD
--- OUTSIDE RECORDS SUMMARY | 2024-10-30 16:54 | XMS_ITS | Clinical Summary ---
Author Organization 175 [facility] Address [address] [place] [address] Phone Care Team Providers Care Plate Grainer Apprentice Name Role Phone Benja Jones Primary Care Provider Allergies Active Allergy Reactions Criticality Noted Date Comments Venlafaxine 09/19/2005 Effexor [Venlafaxine Hydrochloride] Morphine Sulfate 09/19/2005 Morphine [Morphine Sulfate-nacl] Paroxetine 09/19/2005 Paxil Medications Medication Sig Dispensed Refills Start Date End Date Status buPROPion SR (WELLBUTRIN SR) 150 mg 12 hr tablet Take 150 mg by mouth 2 times daily. Active loratadine (CLARITIN) 10 mg tablet CLARITIN 10 MG OR TABS 1 po qd Active ipratropium/albuterol sulfate (IPRATROPIUM-ALBUTERO L INHL) Inhale into the lungs Active zolpidem tartrate (ZOLPIDEM ORAL) Zolpidem Tartrate 10 MG TABS Take by mouth at bedtime as needed. Active Active Problems Problem Noted Date Diagnosed Date Anxiety 08/13/2013 H/O ETOH abuse 08/13/2013 Varicose vein of leg 08/13/2013 Overview (10/18/2024): Varicose vein S/p stripping Atypical chest pain 05/14/2013 Allergic rhinitis 09/19/2005 Asthma 09/19/2005 Depressive disorder 09/19/2005 Overview (10/18/2024): DEPRESSIVE Social History Tobacco Use Types Packs/Day Years Used Date Smoking Tobacco: Never Assessed Sex and Gender Information Value Date Recorded Sex Assigned at Not on file Gender Identity Not on file Sexual Orientation Not on file Plan of Treatment Upcoming Encounters Date Type Department Care Team ([facility] st Contact Info) Description 11/08/2024 9:30 AM EST Consult Orthopedic Surgery [facility] [address] [facility] [address] [place] [address] [phone] Omkar Rothman, DPM 175 [facility] [address] [place] [address] Health Maintenance Due Date Last Done Comments Breast Cancer Screening 1965 Pneumococcal Vaccine: Pediat rics (0 to 5 Years) and At-Risk Patients (6 to 64 Years) (1 of 2 - PCV) 1970 DTaP,Tdap,and Td Vaccines (1 - Tdap) 1983 Cervical Cancer Screening: P ap Smear 1985 Zoster Vaccines (1 of 2) 2014 COVID-19 Vaccine ( - 2023-2 5 season) 2024 Influenza Vaccine (#1) 2024 RSV Immunization Patients 60 + Years Old (1 - Risk 60-74 years 1-dose series) 2024 Colorectal Cancer Screening: Colonoscopy 09/20/2024 Depression Screening 09/20/2024 HIV Screening 09/20/2024 Hepatitis C Screening 09/20/2024 Social Influencers of Health Screening 09/20/2024 HIB Vaccines Aged Out No longer eligi ble based on patient's age to complete this topic HPV Vaccines Aged Out No longer eligi ble based on patient's age to complete this topic Hepatitis A Vaccines Aged Out No long er eligible based on patient's age to complete this topic Hepatitis B Vaccines Aged Out No long er eligible based on patient's age to complete this topic IPV Vaccines Aged Out No longer eligi ble based on patient's age to complete this topic MMR Vaccines Aged Out No longer eligi ble based on patient's age to complete this topic Meningococcal ACWY Vaccine Aged Out N o longer eligible based on patient's age to complete this topic RSV Immunization Patients Un meet 20 months Aged Out No longer eligible b ased on patient's age to complete this topic Varicella Vaccines Aged Out No longer eligible based on patient's age to complete this topic Care Teams Plate Grainer Apprentice Relationship Specialty Start Date End Date Benja Jones PA [address] [place] [address] PCP - General Physician Tack Cutter 09/20/24
== END 2024-10-30 14:29 | disposition home or self-care (01) ==
LOC: HO.NEURO 14:28
PROVIDERS: PCP Physician Assistant
DX: R20.0 Anesthesia of skin (principal); R20.2 Paresthesia of skin
CPT/HCPCS: 95886; 95911

== ENCOUNTER → 2024-10-30 14:31 | Outpatient (BNV) | payer BC, SELFPAY | PROVIDERS: PCP Physician Assistant; Visit Provider Physical Medicine & Rehabilitation | DX: R20.0 Anesthesia of skin (principal); R20.2 Paresthesia of skin | CPT/HCPCS: 95886; 95911 ==

== ENCOUNTER 2024-11-20 15:56 | Outpatient (AMB) | payer BC, SELFPAY ==
[2024-11-20 16:16] VITALS: BP 120/70; PULSE 59; O2SAT 98; BMI 27.6
--- NOTE | 2024-11-20 16:16 | A.OFFPC_ITS ---
Vital Signs 11/20/24 16:16 Height 5 ft 5 in Weight 166 lb BMI 27.6 BP 120/70 Blood Pressure Location Lt brachial Position Sitting Pulse 59 Pulse Source Pulse Oximeter Pulse Oximetry (%) 98 Oxygen Delivery Method Room Air Intake Visit Reasons: f/u pneumonia Solar Installation Technician Required: No Accompanied by: Self / Same As Patient Allergies adhesive [BANDAGE,ADHESIVE] Allergy (Intermediate, Verified 11/20/24 16:38) RASH morphine [MORPHINE] Allergy (Intermediate, Verified 11/20/24 16:38) RASH pneumococcal vaccine [From Pneumovax-23] Adverse Reaction (Intermediate, Verified 11/20/24 16:38) Myalgias Medication List - Last Reconciled 11/20/24 by Benja Jones PA-C fluticasone furoate-vilanterol 100-25 mcg/dose (Breo Ellipta) 1 inh inhalation DAILY 30 days zolpidem 10 mg PO BEDTIME 30 days Tobacco use date assessed: 10/15/24 Dental Screening Dental Screen Date: 10/15/24 HPI f/u pneumonia HPI Details The patient is a 59-year-old female presenting with a follow-up visit for pneumonia. Initially, she experienced persistent cough and general malaise, prompting her to seek medical attention. An urgent care visit resulted in a diagnosis of pneumonia via chest X-ray. She was treated with azithromycin and amoxicillin, though she discontinued the latter due to gastrointestinal discomfort. The patient reports improvement in respiratory symptoms but notes persistent back pain in the sides, possibly due to coughing. Recent symptoms inc lude discomfort in the left lung and external ear redness. Her prior pneumonia was diagnosed as community-acquired, with initial significant symptoms now mostly resolved. [facility] Medical History (Updated 11/20/24 @ 16:46 by Benja Jones PA-C) Sliding hiatal hernia Herpes simplex Dysphagia Surgical History History of varicose veins History of cholecystectomy Family History Father CVD (cardiovascular disease) S/P triple vessel bypass Colon cancer Bladder cancer Mother No problems noted. Brother No problems noted. Brother No problems noted. Sister In good health Sister In good health Son In good health Daughter In good health Daughter In good health Social History Housing: House Alcohol intake: never Patient Tobacco Use Status: Never used Tobacco e-Cigarette/Vaping Use: Never Used Second Hand Smoke Exposure: No service: No Current occupational status: employed Current occupation: [email or web address] Cognitive needs: No Hearing needs: No Vision needs: No Questionnaire Thrive Questionnaire Date Thrive assessed: 10/15/24 I am a: Patient What is your living situation today?: I have a steady place to live Within the past 12 months, did the food you bought not last and you didn't have the money to get more?: Never true Within the past 12 months, did you worry whether your food would run out before you got money to buy more?: Never true Do you have trouble paying for medicines?: No Do you have trouble getting transportation to medical appointments?: No Do you have trouble paying your heating and electricity bill?: No Do you have trouble taking care of your child, family member or friend?: No Do you have trouble with day-to-day activities such as bathing, preparing meals, shopping, managing finances, etc.?: No Are you currently unemployed and looking for a job?: No Are you interested in more education?: No Please select the resources that you would like help with: None Currently or been in a relationship where the following occur: I choose not to answer THRIVE Score: 0 MAURY-7 AMB Questionnaire MAURY-7 Date MAURY - 7 assessed: 10/15/24 Source: Developed by Drs. Franklin Velasco, Erna Prabhakar, Sandip Cooper and colleagues, with an educational delmy from [employer]. Review of Systems Const Denies headache(s) Eyes Denies loss of vision ENT Denies vertigo, Denies dizziness, Denies headache(s) and Denies sore throat Card Denies chest pain, Denies leg edema and Denies lightheadedness Resp Denies cough, Denies hemoptysis and Denies wheezing GI Denies abdominal pain, Denies melena, Denies constipation, Denies diarrhea and Denies vomiting Denies urinary frequency, Denies dysuria and Denies urinary urgency Musc Denies arthralgias, Denies joint swelling, Denies numbness and Denies tingling Neuro Denies Abnormal speech present, Denies behavioral changes, Denies vertigo, Denies dizziness, Denies headache(s), Denies loss of vision, Denies memory loss, Denies numbness and Denies tingling Psych Denies anxiety, Denies behavioral changes, Denies depression, Denies memory loss and Denies panic attacks Thang/Lymph Denies easy bleeding and Denies easy bruising Aller/Immun Denies wheezing Physical exam (Primary Care) Vital Signs: Last Vital Signs Pulse 59 11/20/24 16:16 BP 120/70 11/20/24 16:16 Pulse Ox 98 11/20/24 16:16 Oxygen Delivery Method Room Air 11/20/24 16:16 BMI result Body Mass Index 27.6 Tobacco/Smoking Status: Tobacco use Status Tobacco use date assessed 10/15/24 11/20/24 16:21 Patient Tobacco Use Status Never used Tobacco 11/20/24 16:21 e-Cigarette/Vaping Use Never Used 11/20/24 16:21 Thrive Assessment: Date of Thrive Assessment Date Thrive assessed 10/15/24 11/20/24 16:21 Currently or been in a relationship where the following occur: I choose not to answer Const General: healthy appearing, no acute distress, alert and awake Nutritional Appearance: well nourished Orientation/consciousness: oriented to person, oriented to place and oriented to time HENMT Ears: TM's normal bilaterally General nose exam: Normal nasal mucous membranes and turbinates present Eyes Conjunctivae: conjunctivae normal Sclerae: sclerae normal Pupils: Equal, round and reactive pupils present Neck Neck: Yes no lymphadenopathy and Yes no JVD Thyroid: Thyroid normal Carotids: no bruits Resp Other: Occasional junky cough during exam, left lower lung field with rhonchi. Effort & Inspection: normal respiratory effort and not tachypneic Auscultation: no crackles, no rales, rhonchi and no wheezes Cardio Rate: regular rate Rhythm: regular rhythm Heart sounds: no murmurs and normal S1 and S2 GI Palpation (GI): Soft to palpation, nontender, no hepatomegaly and no splenomegaly Auscultation: normal bowel sounds Skin General skin exam: no rashes or lesions noted and dry skin Neuro General: oriented to person, oriented to place and oriented to time Cranial nerves: Yes Equal, round and reactive pupils present Speech: No Abnormal speech present Gait exam (Neuro): Normal gait present Motor exam (neuro): no tremor noted Extrem Right upper extremity: full ROM Left upper extremity: full ROM Right lower extremity: full ROM; no edema Left lower extremity: full ROM; no edema Psych Mental Status: mental status grossly normal Speech and movement: Normal speech and movement present Affect: normal affect Attitude: cooperative Thought process: Normal thought process present Coding Level of Care Code Est Pt Level 3 (71038) Diagnoses Pneumonia of left upper lobe due to infectious organism J18.9 Pneumonia type: due to unspecified organism Laterality: left Lung location: upper lobe of lung Assessment & Plan Assessment & Plan (1) Pneumonia: Code(s): J18.9 - Pneumonia, unspecified organism Category: Medical Qualifiers: Pneumonia type: due to unspecified organism Laterality: left Lung location: upper lobe of lung Qualified Code(s): J18.9 - Pneumonia, unspecified organism Plan: Patient recently diagnosed with a left-sided pneumonia and was started on both amoxicillin and azithromycin. She has been feeling better. She still has a bit of a junky cough and rhonchi on pulmonary exam. Will supply patient 6 day prednisone taper. Will get x-ray of chest to confirm resolution of her pulmonary infiltrate Orders: Orders XR chest 2V Today J18.9 - Pneumonia, unspecified organism Medications: New prednisone Take 3 tablets times 2 days, 2 tablets x2 days, 1 tablet x2 days 10 mg PO DIRECTED 6 days 12 tabs 0RF J18.9 - Pneumonia, unspecified organism
--- OUTSIDE RECORDS SUMMARY | 2024-11-20 16:33 | XMS_ITS | Encounter Summary ---
Author Organization [facility] Address [address] [place] [address] Care Team Providers Care Stitching Machine Operator Name Role Phone Benja Jones Primary Care Provider [phone] Reason for Visit * Reason Comments Foot Pain Translational Specialist chronic rt foot p ain looking for orthotic shoesXRAYS OSTEOARTHRITIS SPORADIC SWELLING * Consultation (Routine) - Closed Specialty Diagnoses / Procedures Referred By Gurpreet theodore Referred To Contact Podiatry / Orthopaedic Surgery Diagnoses Primary osteoarthritis, unspecified ankle and foot Benja Jones PA Phone: tel: fax: Omkar Rothman DPM [address] [address] Phone: tel: fax: Referral ID Status Reason Start Date Expiration Date V isits Requested Visits Authorized [id number] Closed Specialty Services Required 10/17/2024 10/08/2025 6 6 Encounter Details Date Type Department Care Team ([facility] st Contact Info) Description 11/08/2024 9:30 AM EST Consult Orthopedic Surgery - [place] [address] [phone] Omkar Rothman DPM [address] [address] 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 (Primary Dx); Pain in right foot; Metatarsalgia of right foot Social History Tobacco Use Types Packs/Day Years Used Date Smoking Tobacco: Never Assessed Comments Unknown Sex and Gender Information Value Date Recorded Sex Assigned at Not on file Legal Sex Female 9:53 AM EST Gender Identity Not on file Sexual Orientation Not on file documented as of this encounter Last Filed Vital Signs Vital Sign Reading Time Taken Comments Blood Pressure - - Pulse - - Temperature - - Respiratory Rate - - Oxygen Saturation - - Inhaled Oxygen Concentration - - Weight 69.9 kg (154 lb) 11/08/2024 9:42 AM EST Height 165.1 cm (5' 5 ) 11/08/2024 9:42 AM EST Body Mass Index 25.63 11/08/2024 9:42 AM EST documented in this encounter Progress Notes * Omkar Rothman DPM - 11/08/2024 9:30 AM EST Referring MD: Benja Jones PA Last PCP visit: 09/21/2024 IDENTIFIER: @TITLE@ Rory is a 59 y.o. year old female who presents for consultation. CC: Right foot pain HPI: 59-year-old female presents office chief complaint of right foot pain. Patient notes that she has been having some swelling across the midfoot and periodically will have increased swelling to the area. Patient notes that she wears good supportive shoes. Patient has not tried an orthotic. Patient does note that she gets some callus ration to the forefoot as well. Patient is here for evaluation treatment ROS: GENERAL: Pt denies nausea, fever, vomiting, chills, or shortness of breath. Pt in NAD. CARDIOLOGY: pt denies chest pain, palpitations LUNGS: pt denies shortness of breath MUSCULOSKELETAL: See HPI, otherwise no joint pain or swelling, back pain, or muscle pain. SKIN: see HPI, otherwise no lesions, rash or itching NEURO: No persistent headache, weakness or numbness The remainder of the review of systems is noncontributory PAST MEDICAL HISTORY: Patient Active Problem List Diagnosis Allergic rhinitis Anxiety Asthma Atypical chest pain Depressive disorder H/O ETOH abuse Varicose vein of leg SOCIAL HISTORY: Social History Tobacco Use Smoking status: Not on file Smokeless tobacco: Not on file Substance Use Topics Alcohol use: Not on file ACTIVE MEDICATIONS: Outpatient Medications Marked as Taking for the 11/08/24 encounter (Consult) with Omkar Rothman DPM Medication Sig Dispense Refill buPROPion SR (WELLBUTRIN SR) 150 mg 12 hr tablet Take 150 mg by mouth 2 times daily. ipratropium/albuterol sulfate (IPRATROPIUM-ALBUTEROL INHL) Inhale into the lungs loratadine (CLARITIN) 10 mg tablet CLARITIN 10 MG OR TABS 1 po qd zolpidem tartrate (ZOLPIDEM ORAL) Zolpidem Tartrate 10 MG TABS Take by mouth at bedtime as needed. ALLERGIES: @ALL@ PHYSICAL EXAM: Height 1.651 m (65 ), weight 69.9 kg (154 lb). PODIATRIC EXAMINATION: GENERAL: Patient appears well nourished, with NAD. VASCULAR: Dorsalis pedis pulses are 2/4 bilaterally and Posterior tibial pulses are 2/4 bilaterally. Capillary filling time within normal limits the digits. No pallor on elevation or rubor on dependency. Positive hair growth. No varicosities. Denies rest pain or claudication pain. NEUROLOGICAL: Sharp/dull sensation intact, protective sensation intact 10/10 with 5.07 semmes terri bilaterally, vibratory sensation with tuning fork intact to the tibial tuberosity. ORTHOPEDIC: Good muscle strength 5/5 of all flexors and extensors. Dorsi flexion of ankle ,10 degrees, plantar flexion WNL. No muscle atrophy. Severe arthritic changes over the tarsometatarsal joint with dorsal exostoses that are palpable and painful. Increased arch height with collapsibility on stance. Increased metatarsal bony prominences to the plantar aspect of the foot at the 1 3 and 5 position. Some contracture of digits which are semirigid. DERMATOLOGICAL:.No masses or skin lesions noted. Normal skin temperature, normal skin turgor. BIOMECHANICS: STJ ROM wnl, MTJ ROM wnl, 1st MPJ ROM wnl. IMPRESSION: 1. 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 Pain in right foot 3. Metatarsalgia of right foot PLAN: Pt was seen and examined, history reviewed. 59-year-old female with increased metatarsal angle with cavus foot structure and arthritic changes of the midfoot. Patient was educated on the pathology mechanics associated with an increased arch height but collapses on stance. Patient understands that she is suffering with arthritic changes to the midfoot. Patient was educated on the use of topical anti-inflammatory medication such as diclofenac sodium. Patient likes and prefers natural medicinal treatment. Patient was educated that sometimesnatural medicines do not work and she may require steroid injection at a later date. Patient encouraged to use a metatarsal pad to offload the metatarsal areas which are callus secondary to fat pad atrophy and rigid contracture of digits. 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
--- OUTSIDE RECORDS SUMMARY | 2024-11-20 16:33 | XMS_ITS | Clinical Summary ---
Author Organization 175 [facility] Address 175 [place] [address] Phone Care Team Providers Care Weather Reporter Name Role Phone Benja Jones Primary Care Provider Allergies Active Allergy Reactions Criticality Noted Date Comments Adhesive Tape-Silicones 11/07/2024 BANDAGES Venlafaxine 09/19/2005 Effexor [Venlafaxine Hydrochloride] Morphine Sulfate 09/19/2005 Morphine [Morphine Sulfate-nacl] Paroxetine 09/19/2005 Paxil Pneumococcal 23-Rhonda Ps Vaccine 11/07/2024 Medications buPROPion SR (WELLBUTRIN SR) 150 mg 12 hr tablet Take 150 mg by mouth 2 times daily. Active loratadine (CLARITIN) 10 mg tablet CLARITIN 10 MG OR TABS 1 po qd Active ipratropium/alb uterol sulfate (IPRATROPIUM-AL BUTEROL INHL) Inhale into the lungs Active zolpidem tartrate (ZOLPIDEM ORAL) Zolpidem Tartrate 10 MG TABS Take by mouth at bedtime as needed. 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); Pain in right foot; Metatarsalgia of right foot from Last 3 Months Surgical History Surgery Date Site/Laterality Comments CHOLECYSTECTOMY N/A US LEG BILATERAL MAPPING FOR VARICOSE VEINS N/A Social History Tobacco Use Types Packs/Day Years Used Date Smoking Tobacco: Never Assessed Comments Unknown Sex and Gender Information Value Date Recorded Sex Assigned at Not on file Legal Sex Female 9:53 AM EST Gender Identity Not on file Sexual Orientation Not on file Obstetrics History Last Filed Vital Signs Vital Sign Reading Time Taken Comments Blood Pressure - - Pulse - - Temperature - - Respiratory Rate - - Oxygen Saturation - - Inhaled Oxygen Concentration - - Weight 69.9 kg (154 lb) 11/08/2024 9:42 AM EST Height 165.1 cm (5' 5 ) 11/08/2024 9:42 AM EST Body Mass Index 25.63 11/08/2024 9:42 AM EST Plan of Treatment Health Maintenance Due Date Last Done Comments Breast Cancer Screening 1964 Cervical Cancer Screening: P ap Smear 1985 Zoster Vaccines (1 of 2) 2014 Pneumococcal Vaccine: Pediat rics (0 to 5 Years) and At-Risk Patients (6 to 64 Years) (2 of 2 - PCV) 10/18/2020 10/18/2019 COVID-19 Vaccine (1 - 2023-2 5 season) 2024 Influenza Vaccine (#1) 2024 10/10/2019 RSV Immunization Patients 60 + Years Old (1 - Risk 60-74 years 1-dose series) 2024 Colorectal Cancer Screening: Colonoscopy 09/20/2024 Depression Screening 09/20/2024 HIV Screening 09/20/2024 Hepatitis C Screening 09/20/2024 Social Influencers of Health Screening 09/20/2024 DTaP,Tdap,and Td Vaccines (2 - Td or Tdap) 04/21/2025 04/21/2015 HIB Vaccines Aged Out No longer eligi [...] on patient's age to complete this topic Insurance [facility] Care Teams Weather Reporter Relationship Specialty Start Date End Date Benja Jones PA PCP - General Physician Card Folder 09/20/24
== END 2024-11-20 16:54 | disposition home or self-care (01) ==
PROVIDERS: PCP Physician Assistant; Visit Provider Physician Assistant
DX: J18.9 Pneumonia, unspecified organism (principal)

== ENCOUNTER → 2024-11-20 15:56 | Outpatient (BNVA) | payer BC, SELFPAY | PROVIDERS: PCP Physician Assistant; Visit Provider Physician Assistant ==

== ENCOUNTER 2024-12-06 11:42 | Outpatient (REF) | payer BC, SELFPAY ==
--- NOTE | ~2024-12-06 | MM_ITS ---
EXAMINATION: MM SCREENING DIGITAL BREAST TOMOSYNTHESIS, BILATERAL CLINICAL INFORMATION: Screening. Asymptomatic. COMPARISON: Mammography: Comparison is made with available priors TECHNIQUE: Digital breast mammography with tomosynthesis is performed in both the craniocaudal and mediolateral oblique views along with computer-aided detection (CAD). FINDINGS: There are scattered areas of fibroglandular density (ACR BI-RADS breast composition Category b). There are no significant masses, abnormal calcifications, or other abnormalities. MM/MM tomosynthesis screening BI IMPRESSION: No mammographic evidence of malignancy. ASSESSMENT: BI-RADS BI-RADS 1 - Negative RECOMMENDATION: Routine annual mammography screening. 1 year F/U This examination should not preclude the clinical evaluation of a suspicious palpable abnormality. This patient's information was entered into a reminder system with a target due date for their next mammogram. Electronically signed by: Lima Fernandez DO 12/09/2024 05:30 PM INO
--- OUTSIDE RECORDS SUMMARY | 2024-12-06 14:02 | XMS_ITS | Encounter Summary ---
Author Organization [employer] Address [address] [place] [address] Care Team Providers Care Felting Machine Operator Helper Name Role Phone Benja Jones Primary Care Provider [phone] Reason for Visit * Reason Comments Foot Pain Roast Master chronic rt foot p ain looking for orthotic shoesXRAYS OSTEOARTHRITIS SPORADIC SWELLING * Consultation (Routine) - Closed Specialty Diagnoses / Procedures Referred By Gurpreet theodore Referred To Contact Podiatry / Orthopaedic Surgery Diagnoses Primary osteoarthritis, unspecified ankle and foot Benja Jones PA Phone: tel: fax: Omkar Rothman DPM [address] [address] Phone: tel: fax: Referral ID Status Reason Start Date Expiration Date V isits Requested Visits Authorized [id number] Closed Specialty Services Required 10/17/2024 10/08/2025 6 6 Encounter Details Date Type Department Care Team ([facility] st Contact Info) Description 11/08/2024 9:30 AM EST Consult Orthopedic Surgery - [place] [address] [address] Omkar Rothman DPM [address] [address] 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
--- OUTSIDE RECORDS SUMMARY | 2024-12-06 14:02 | XMS_ITS | Clinical Summary ---
Author Organization 175 [facility] Address [address] [place] [address] Phone Care Team Providers Care Puppet Maker Name Role Phone Benja Jones Primary Care [...] 11/08/2024 9:30 AM EST Consult Orthopedic Surgery [facility] 250 175 [facility] [address] [place] [phone] Omkar Rothman, CANDE Arthritis of midtarsal [...] Vaccines (1 of 2) 2014 Pneumococcal Vaccine: 50+ Ye ars (2 of 2 - PCV) 10/18/2020 10/18/2019 Pneumococcal Vaccine: Pediat rics (0 to 5 [...] patient's age to complete this topic Meningococcal B Vacine Aged Out No lo nger eligible based on patient's age to complete this topic RSV Immunization Patients Un meet 20 months Aged Out No longer eligible b ased on patient's age to complete this topic Varicella Vaccines Aged Out No longer eligible based on patient's age to complete this topic Insurance Care Teams Puppet Maker Relationship Specialty Start Date End Date Benja Jones PA PCP - General Physician Criminal Justice Professor 09/20/24
== END 2024-12-06 11:43 | disposition home or self-care (01) ==
LOC: HO.MAMMO 11:42
PROVIDERS: PCP Physician Assistant; Visit Provider Physician Assistant
DX: Z12.31 Encounter for screening mammogram for malignant neoplasm of breast (principal)
CPT/HCPCS: 77063; 77067

== ENCOUNTER → 2024-12-06 12:00 | Outpatient (BNV) | payer BC, SELFPAY | PROVIDERS: PCP Physician Assistant; Visit Provider Internal Medicine | DX: Z12.31 Encounter for screening mammogram for malignant neoplasm of breast (principal) | CPT/HCPCS: 77063; 77067 ==

== ENCOUNTER 2024-12-18 14:50 | Outpatient (AMB) | payer BC, SELFPAY ==
--- NOTE | 2024-12-18 15:00 | A.OFFVIS_ITS ---
Vital Signs 12/18/24 15:01 Height 5 ft 5 in Weight 166 lb BMI 27.6 Intake Visit Reasons: Inj-Left Knee Durolane Inj, last given 06/19/24 Intake Note: Margarita is a 59 year old female who presents with complaints of left knee pain. She describes her pain as sharp in nature. She has tried physical therapy exercises which aggravated her pain. She has also tried Tylenol and anti- inflammatory medicines which gave her minimal relief. She has had cortisone injections in the past which gave her minimal relief. She has also had viscosupplementation injections which gave her good relief. She would like to hold off on surgery if at all possible. Allergies adhesive [BANDAGE,ADHESIVE] Allergy (Intermediate, Verified 12/18/24 15:01) RASH morphine [MORPHINE] Allergy (Intermediate, Verified 12/18/24 15:01) RASH pneumococcal vaccine [From Pneumovax-23] Adverse Reaction (Intermediate, Verified 12/18/24 15:01) Myalgias Medication List - Last Reconciled 12/19/24 by Robbie Fink MD fluticasone furoate-vilanterol 100-25 mcg/dose (Breo Ellipta) 1 inh inhalation DAILY 30 days prednisone 10 mg PO DIRECTED 6 days zolpidem 10 mg PO BEDTIME 30 days [facility] Medical History (Updated 11/20/24 @ 16:46 by Benja Jones PA-C) Sliding hiatal hernia Herpes simplex Dysphagia Surgical History History of varicose veins History of cholecystectomy Family History Father CVD (cardiovascular disease) S/P triple vessel bypass Colon cancer Bladder cancer Mother No problems noted. Brother No problems noted. Brother No problems noted. Sister In good health Sister In good health Son In good health Daughter In good health Daughter In good health Social History Housing: House Alcohol intake: never Patient Tobacco Use Status: Never used Tobacco e-Cigarette/Vaping Use: Never Used Second Hand Smoke Exposure: No service: No Current occupational status: employed Current occupation: [employer] Cognitive needs: No Hearing needs: No Vision needs: No Physical Exam Vital Signs: BMI result Body Mass Index 27.6 Const Other: Well-nourished well-developed very friendly female awake alert and oriented x3 in no acute distress Extrem Other: Bilateral lower extremity examination shows good capillary refill, no skin lesions noted, normal sensation light touch Left knee examination shows a minimal effusion, palpable crepitus with range of motion, pain with range of motion, no instability Office Procedures AMB Joint Injection/Aspiration Joint Injection/Aspiration Primary Site: left knee Prep: site was prepped using aseptic technique Injected: 60 mg of (Durolane viscosupplementation) and 1% plain lidocaine Procedure: The patient tolerated the procedure well Coding - Large joint Procedure code (CPT) selection complete Results Reviewed Results Reviewed: X-rays of the patient's left knee taken previously show joint space narrowing, subchondral sclerosis, no acute bony abnormalities Assessment & Plan Assessment & Plan (1) Osteoarthritis of left knee: Code(s): M17.12 - Unilateral primary osteoarthritis, left knee Category: Medical Plan Ms. Valadez presents with progressively worsening left knee pain due to osteoarthritis. The risks and benefits of a left knee Durolane viscosupplementation injection were discussed at length with the patient. The patient wished to proceed. She tolerated the injection well. She will continue with her home exercise program. She will contact me prior to her follow-up appointment in 3 months should any questions or concerns arise. Feel free to call me at any time should questions regarding her orthopedic management arise. I spent 22 minutes in reviewing the patient's records and imaging studies, seeing the patient and documenting in the medical record. Orders: Orders AMB Joint Injection/Aspiration 12/18/24 M17.12 - Unilateral primary osteoarthritis, left knee Coding Level of Care Code Est Pt Level 3 (30163) Complex EM visit Add On G2211 Diagnoses Osteoarthritis of left knee M17.12 CPT Codes Coding - Large joint: 69933 - Large joint ([id number])
[2024-12-18 15:01] VITALS: BMI 27.6
--- OUTSIDE RECORDS SUMMARY | 2024-12-18 17:29 | XMS_ITS | Clinical Summary ---
Author Organization 175 [facility] Address [address] [place] [address] Phone Care Team Providers Care Web Content Coordinator Name Role Phone Benja Jones Primary Care [...] 11/08/2024 9:30 AM EST Consult Orthopedic Surgery [facility] 250 175 [facility] [address] [place] [phone] Omkar Rothman, CANDE Arthritis of midtarsal [...] to complete this topic Insurance Care Teams Web Content Coordinator Relationship Specialty Start Date End Date Benja Jones PA PCP - General Physician Automobile Leasing Supervisor 09/20/24
== END 2024-12-18 15:35 | disposition home or self-care (01) ==
LOC: HO.HOS 14:51
PROVIDERS: PCP Physician Assistant; Visit Provider Orthopaedic Surgery
DX: M17.12 Unilateral primary osteoarthritis, left knee (principal)
CPT/HCPCS: 20610; 99213

== ENCOUNTER → 2024-12-18 14:50 | Outpatient (BNVA) | payer BC, SELFPAY | PROVIDERS: PCP Physician Assistant; Visit Provider Orthopaedic Surgery | DX: M17.12 Unilateral primary osteoarthritis, left knee (principal) | CPT/HCPCS: 20610; J2003; J7318 ==

== ENCOUNTER 2025-10-08 08:37 | Outpatient (AMB) | payer BC, SELFPAY ==
--- NOTE | 2025-10-08 08:39 | A.OFFVIS_ITS ---
Intake Visit Reasons: left knee Durolane Intake Note: Margarita is 60 year old female who presents with complaints of left knee pain. She describes her pain as sharp in nature. She has failed the last 3 months of conservative treatment. She has tried Tylenol and anti-inflammatory medicines which gave her minimal relief. At this point her left knee pain is interfering with her activities of daily living and her ability to sleep well through the night. Allergies adhesive (BANDAGE,ADHESIVE) Allergy (Intermediate, Verified 12/18/24 15:01) RASH morphine (MORPHINE) Allergy (Intermediate, Verified 12/18/24 15:01) RASH pneumococcal vaccine (From Pneumovax-23) Adverse Reaction (Intermediate, Verified 12/18/24 15:01) Myalgias Medication List - Last Reconciled 10/08/25 by Robbie iFnk MD doxycycline monohydrate 100 mg PO BID 14 days fluticasone furoate-vilanterol 100-25 mcg/dose (Breo Ellipta) 1 inh inhalation DAILY 30 days prednisone 10 mg PO DIRECTED 6 days zolpidem 10 mg PO BEDTIME 30 days [facility] Medical History (Updated 04/07/25 @ 16:30 by Benja Jones PA-C) Sliding hiatal hernia Herpes simplex Dysphagia Surgical History History of varicose veins History of cholecystectomy Family History Father CVD (cardiovascular disease) S/P triple vessel bypass Colon cancer Bladder cancer Mother No problems noted. Brother No problems noted. Brother No problems noted. 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 [employer] Cognitive needs: No Hearing needs: No Vision needs: No Physical Exam Extrem Other: Left knee examination shows a minimal effusion, palpable crepitus with range of motion, pain with range of motion, no instability Office Procedures AMB Joint Injection/Aspiration Joint Injection/Aspiration Primary Site: Left Knee Prep: site was prepped using aseptic technique Injected: 60 mg of, Durolane, with 3 mL of and 1% plain Lidocaine Procedure: The patient tolerated the procedure well Coding - Large joint Procedure code (CPT) selection complete Results Reviewed Results Reviewed: X-rays of the patient's left knee taken previously show joint space narrowing, subchondral sclerosis, no acute bony abnormalities Assessment & Plan Assessment & Plan (1) Osteoarthritis of left knee: Code(s): M17.12 - Unilateral primary osteoarthritis, left knee Category: Medical Plan Ms. Valadez presents with left knee pain due to osteoarthritis. The risks and benefits of a Durolane viscosupplementation injection were discussed at length with the patient. The patient wished to proceed. She tolerated the injection well. She will continue with her home exercise program. She will contact me prior to her follow-up appointment in 3 months should any questions or concerns arise. Feel free to call me at any time should questions regarding her orthopedic management arise. I spent 22 minutes in reviewing the patient's records and imaging studies, seeing the patient and documenting in the medical record. Orders: Orders AMB Joint Injection/Aspiration Today M17.12 - Unilateral primary osteoarthritis, left knee Coding Level of Care Code Est Pt Level 3 (77831) Add On Problem Visit Only Diagnoses Osteoarthritis of left knee M17.12 CPT Codes Coding - Large joint: 56158 - Large joint ([id number])
--- OUTSIDE RECORDS SUMMARY | 2025-10-08 08:40 | XMS_ITS | Clinical Summary ---
Author Organization [facility] Address [address] [address] Phone Care Team Providers Care Florist Helper Name Role Phone Nishant Dobson DO Primary Care Provider [phone] Allergies Active Allergy Reactions Criticality Noted Date Comments Morphine Hives 01/11/2018 Medications No known medications Social History Tobacco Use Types Packs/Day Years Used Date Smoking Tobacco: Never Smokeless Tobacco: Never Alcohol Use Standard Drinks/Week Comments No 0 (1 standard drink = 0.6 oz pur e alcohol) Education Answer Date Recorded Are you interested in more education? Not on sudhakar e 02/03/2023 Are you concerned about learning? Not on file 02/03/2023 No 02/03/2023 No 02/03/2023 Digital Access Answer Date Recorded No 03/06/2023 No 03/06/2023 Reliable internet access at home? Not on file 03/06/2023 Device with a working camera? Not on file Comments No Sex and Gender Information Value Date Recorded Sex Assigned at Female 01/11/2018 1:26 PM EDT Legal Sex Female 9:42 PM EDT Gender Identity Female 01/11/2018 1:26 PM EDT Sexual Orientation Straight 01/11/2018 1: 26 PM EDT Last Filed Vital Signs Vital Sign Reading Time Taken Comments Blood Pressure 123/84 02/26/2022 1:00 PM EDT Pulse 82 02/26/2022 12:58 PM EDT Temperature 36 C (96.8 F) 02/26/2022 10:07 AM EDT Respiratory Rate 16 02/26/2022 12:58 PM EDT Oxygen Saturation 100% 02/26/2022 1:00 PM EDT Inhaled Oxygen Concentration - - Weight 77.1 kg (170 lb) 01/11/2018 2:13 PM EDT Height 165.1 cm (5' 5 ) 01/11/2018 2:13 PM EDT Body Mass Index 28.29 01/11/2018 2:13 PM EDT Plan of Treatment Not on file Medical Devices Not on file Insurance HMO POS HMO POS HMO [place] [address] [place] [address] [address] [place] [address] [address] [place] [address] HMO POS Care Teams Florist Helper Relationship Specialty Start Date End Date Nishant Dobson DO PCP - General 07/25/17 Additional Source Comments The information contained in this document represents components of the legal health record. It is not the complete legal health record.[facility]
--- OUTSIDE RECORDS SUMMARY | 2025-10-08 08:40 | XMS_ITS | Clinical Summary ---
Author Organization 175 [facility] Address [address] [place] [address] Phone Care Team Providers Care Factory Hand Name Role Phone Benja Jones Primary Care [...] 09/19/2005 Depressive disorder 09/19/2005 Overview (10/18/2024): DEPRESSIVE Surgical History Surgery Date Site/Laterality Comments CHOLECYSTECTOMY N/A US LEG BILATERAL MAPPING FOR VARICOSE VEINS N/A Social History Tobacco Use Types Packs/Day Years Used Date Smoking Tobacco: Never Assessed Comments Unknown Sex and Gender Information Value Date Recorded Sex Assigned at Not on file Legal Sex Female 9:53 AM EST Gender Identity Not on file Sexual Orientation Not on file Last Filed Vital Signs Vital Sign Reading [...] Last Done Comments Breast Cancer Screening 1965 Colorectal Cancer Screening: Colonoscopy 1965 Drug Screen 1965 Non-Opioid Controlled Substa nce Agreement 1964 Cervical Cancer Screening: P ap Smear 1985 RSV Immunization Adult Patie nts (1 - Risk 50-74 years 1-dose series) 2014 Zoster Vaccines (1 of 2) 2014 Pneumococcal Vaccine: 50+ Ye ars (2 of 2 - PCV) 10/18/2020 10/18/2019 HIV Screening 09/20/2024 Hepatitis C Screening 09/20/2024 Social Influencers of Health Screening 09/20/2024 Depression Screening 10/09/2024 DTaP,Tdap,and Td Vaccines (2 - Td or Tdap) 04/21/2025 04/21/2015 COVID-19 Vaccine (1 - 2024-2 6 season) 2025 Influenza Vaccine (#1) 2025 10/10/2019 HIB Vaccines Aged Out No longer eligi [...] age to complete this topic Meningococcal B Vaccine Aged Out No l onger eligible based on patient's age to complete this topic RSV Immunization Patients Un meet 20 months Aged Out No longer eligible b ased on patient's age to complete this topic Varicella Vaccines Aged Out No longer eligible based on patient's age to complete this topic [place] [address] [place] [address] Care Teams Factory Hand Relationship Specialty Start Date End Date Benja Jones PA PCP - General Physician Comic Book Designer 09/20/24
== END 2025-10-08 08:59 | disposition home or self-care (01) ==
LOC: HO.HOS 08:37
PROVIDERS: PCP Physician Assistant; Visit Provider Orthopaedic Surgery
DX: M17.12 Unilateral primary osteoarthritis, left knee (principal)
CPT/HCPCS: 20610; 99213

== ENCOUNTER → 2025-10-08 08:37 | Outpatient (BNVA) | payer BC, SELFPAY | PROVIDERS: PCP Physician Assistant; Visit Provider Orthopaedic Surgery | DX: M17.12 Unilateral primary osteoarthritis, left knee (principal) | CPT/HCPCS: 20610; J2003; J7318 ==